=== PATIENT | female | born 1950 | race Caucasian/White ===

== ENCOUNTER 2020-11-14 09:58 | Outpatient (CLI) | payer MEDICARE, SELFPAY ==
--- NOTE | ~2020-11-14 | MR_ITS ---
EXAMINATION: MR shoulder RT wo con DATE: 11/14/2020 10:59 INDICATION: Right shoulder pain TECHNIQUE: Magnetic resonance imaging (MRI) of the right shoulder was performed without intravenous c ontrast. Sequences included axial PD-weighted FS FSE, coronal oblique PD-weighted FS FSE, coronal obl ique T2-weighted FS FSE, sagittal PD-weighted FS FSE, and sagittal T1-weighted SE. COMPARISON: None. FINDINGS: Coracoacromial arch: The acromion undersurface is flat in morphology (type I). The coracoacromial ligament is normal. Mode rate acromioclavicular osteoarthritis small inferiorly directed osteophytes which exerts mild mass ef fect upon the underlying proximal supraspinatus tendon. Rotator cuff: Moderate supraspinatus and infraspinatus tendinopathy without discrete tear. Minimal subscapularis te ndinopathy without discrete tear. The teres minor tendon is normal. No asymmetric muscular atrophy a t the right rotator cuff or shoulder girdle. Biceps tendon, glenoid labrum and glenohumeral cartilage: The long head biceps tendon is not identified and likely torn and retracted below the level of the in tertubercular groove. Small tear with tiny peripheral paralabral cyst at the posterior glenoid labrum . Partial-thickness cartilage loss at the central, anterior and anterosuperior glenoid as well as anish ng the humeral head with superior and superomedial predominance, both without degenerative subchondra l changes. Small marginal osteophytes are present along the inferomedial aspect of the humeral head. Fluid: Physiologic amount of fluid in the glenohumeral joint. No loose osteochondral bodies. Multi increased fluid signal in the subacromial/subdeltoid bursa consistent with mild bursitis. Bones: Normal marrow signal with no edema, fracture or pathologic marrow replacing process. Mild cystic yao ge at the lesser tuberosity. IMPRESSION: 1. Mild right glenohumeral osteoarthritis with tear at the posterior glenoid labrum. 2. Moderate supraspinatus and infraspinatus and mild subscapularis tendinopathy without discrete tear . 3. Complete tear and distal retraction of the long head biceps tendon. 4. Moderate acromioclavicular osteoarthritis with mild underlying subacromial/subdeltoid bursitis. Reviewed, dictated and finalized at location A. IMPRESSION: 1. Mild right glenohumeral osteoarthritis with tear at the posterior glenoid [place]. 2. Moderate supraspinatus and infraspinatus and mild subscapularis tendinopathy without discrete tear. 3. Complete tear and distal retraction of the long head biceps tendon. 4. Moderate acromioclavicular osteoarthritis with mild underlying subacromial/s ubdeltoid bursitis.
== END 2020-11-14 09:59 | disposition home or self-care (01) ==
PROVIDERS: PCP Internal Medicine; Visit Provider Orthopaedic Surgery
DX: M19.011 Primary osteoarthritis, right shoulder (principal); S46.211A Strain of muscle, fascia and tendon of other parts of biceps, right arm, initial encounter; M75.51 Bursitis of right shoulder
CPT/HCPCS: 73221

== ENCOUNTER 2022-05-28 12:06 | Emergency (ER) | payer MEDICARE, SELFPAY ==
--- NOTE | 2022-05-28 12:09 | ED.URI ---
HPI - URI/Sore Throat General Chief Complaint: Upper Respiratory Infection Stated Complaint: Cough Time Seen by Provider: 05/28/22 12:08 Source: patient Mode of arrival: ambulatory Limitations: no limitations History of Present Illness HPI Narrative: Ms. Dyson is a 71-year-old female patient presenting to clinic today with complaints a cough x3 weeks. She reports that she began rattling yesterday or today. States that when she rattled before she had pneumonia and is concerned that she may have pneumonia. She has a productive cough but is not looking at what color it is. She denies any fever or chills currently. SpO2 is 97% on room air and she is able speak in full sentences without gasping for air. Does have history of pneumonia in the past. Denies having any history of congestive heart failure MD elicited complaint: cough and other ( rattling in chest) Related Data Home Medications Medication Instructions Recorded Confirmed escitalopram oxalate 20 mg tablet 20 mg DIRECTED 04/21/19 05/28/22 lorazepam 1 mg tablet 1 mg DIRECTED 04/21/19 05/28/22 fluconazole 150 mg tablet 150 mg DIRECTED 05/28/22 05/28/22 pantoprazole 40 mg tablet,delayed 40 mg PO DIRECTED 05/28/22 05/28/22 release Allergies Allergy/AdvReac Type Severity Reaction Status Date / Time diphenhydramine Allergy Unknown TONGUE Verified 10/28/21 12:32 EDEMA Review of Systems Review of Systems: Pertinent positives per HPI. Patient denies any fever, chills, rash, headache, visual changes, dizziness, shortness of breath, chest pain, palpitations, nausea, vomiting, diarrhea, constipation, abdominal pain, or any urinary issues. [facility] Past Medical History Medical History Right shoulder pain Family History Family History Other Family history of malignant neoplasm Social History Social History Smoking status: Never smoker Alcohol intake: never Substance use: never Gender identity (if verbalized by the patient): Female Comments At the time of my signature, I reviewed and agree with the nursing past medical, surgical, social, and family history. There is no relevant family history pertinent to the patient complaint. Exam Narrative: General: Well-developed, well nourished, in no apparent distress Head: Normocephalic, atraumatic Eyes: Pupils equally round and reactive to light bilaterally, EOM intact, sclera and conjunctive clear, no discharge, lids normal Ears: TMs intact and clear, ear canals clear, no drainage, grossly hearing normal. Nose: Nares patent, clear nasal discharge, no inflammation, no sinus tenderness. Mouth: Oral pharynx without lesions or masses, good dentition, MMM. Neck: Supple, trachea midline, no enlargement of anterior or posterior cervical nodes, no thyroid masses or goiter palpable. Cardio: Regular rate and rhythm, s1 and s2 normal, no murmur appreciated. Resp: Crackles heard over the left mid lower lobes and the right mid lobe posterioly, no rhonchi, wheezing or rubs Course Course Emergency Course: Portions of this record may have been created with voice recognition software. Level of Care: Express Care Visit Vital Signs Vital signs: Vital Signs Temperature 36.8 C 05/28/22 12:18 Pulse Rate 92 05/28/22 12:18 Respiratory Rate 18 05/28/22 12:18 Blood Pressure 129/89 05/28/22 12:18 Pulse Oximetry 97 05/28/22 12:18 Oxygen Delivery Room Air 05/28/22 12:18 Temperature 36.8 C 05/28/22 12:18 Pulse Rate 92 05/28/22 12:18 Respiratory Rate 18 05/28/22 12:18 Blood Pressure 129/89 05/28/22 12:18 Pulse Oximetry 97 05/28/22 12:18 Oxygen Delivery Room Air 05/28/22 12:18 Vital signs reviewed MDM - URI/Sore Throat MDM Narrative Medical decision making narrative: At
[2022-05-28 12:18] VITALS: BP 129/89; PULSE 92; RESP 18; TEMP 36.8; O2SAT 97
== END 2022-05-28 12:38 | disposition home or self-care (01) ==
PROVIDERS: Emergency Provider Nurse Practitioner Family; PCP Internal Medicine
DX: J22 Unspecified acute lower respiratory infection (principal)
CPT/HCPCS: 99213; G0463

== ENCOUNTER 2022-06-30 07:35 | Emergency (ER) | payer MEDICARE, SELFPAY ==
--- NOTE | ~2022-06-30 | CT_ITS ---
CT Abdomen and Pelvis with contrast. History: Abdominal pain. Spiral CT of the abdomen and pelvis was performed after the administration of intravenous contrast. 1 00 cc of Omnipaque 350 was administered intravenously without complication. Dose reduction technique was used on this scan by utilizing automated exposure control and iterative reconstruction technique. The dose-length product (DLP) was 1075.83 mGy-cm. Findings: Scans through the lung bases are unremarkable. Mild intrahepatic biliary dilatation may be related to prior cholecystectomy. Common bile duct is als o dilated to 12-13 mm. The spleen, pancreas, adrenals and kidneys are within normal limits. No evide nce of aortic aneurysm. No lymphadenopathy is seen. Duodenal diverticulum noted. There is extensive wall thickening of the distal descending and sigmoid colon with pericolonic inflammatory change. No definite abscess or free air evident. Large amount of stool present in the colon proximal to the area of wall thickening of the distal descending colon. Sm all bowel anastomosis noted. Images through the pelvis were performed. Urinary bladder appears to be partially prolapsed. No pelvi c mass evident. Patient appears to be post hysterectomy. No ascites is seen. Impression: Marked wall thickening and inflammatory change involving the distal descending colon and sigmoid colo n. Findings are most compatible with diverticulitis. Underlying neoplasm felt to be less likely, but not completely excluded. Consider follow-up colonoscopy after acute therapy. No abscess or free air evident. Intrahepatic and extrahepatic biliary dilatation may be related to prior cholecystectomy. Correlate c linically and with LFTs. Probable partial prolapse of the urinary bladder. Reviewed, dictated and finalized at location . TACKER Impression: Marked wall thickening and inflammatory change involving the distal descending colon and sigmoid colon. Findings are most compatible with diverticulitis. Unde rlying neoplasm felt to be less likely, but not completely excluded. Consider f ollow-up colonoscopy after acute therapy. No abscess or free air evident. Intrahepatic and extrahepatic biliary dilatation may be related to prior cholec ystectomy. Correlate clinically and with LFTs. Probable partial prolapse of the urinary bladder.
[2022-06-30 07:35] VITALS: BP 190/106; PULSE 91; RESP 16; TEMP 37; O2SAT 100
[2022-06-30 07:49] VITALS: BP 121/110; PULSE 90; RESP 16; TEMP 37; O2SAT 100
[2022-06-30] MEDS: MORPHINE SULFATE (*CRX) 4 MG/ML INJ IV PUSH (08:00)
[2022-06-30] MEDS: ONDANSETRON INJ 4 MG/2 ML VIAL IV PUSH (08:00)
[2022-06-30] MEDS: SODIUM CHLORIDE 0.9% IV 1,000 ML 150 ML IV CONT (08:01)
[2022-06-30 08:05] LABS: Basophils Absolute Auto 0.1 K/mm3 (0.0-0.1); Basophils Percent Auto 0.5 % (0.2-1.2); Eosinophils Absolute Auto 0.3 K/mm3 (0-0.3); Eosinophils Percent Auto 2.7 % (0-4.4); Hematocrit 38.2 % (37.0-47.0); Hemoglobin 11.7 g/dL (12.0-15.0); Immature Granulocyte Absolute 0.09 K/mm3 (0.00-0.031); Immature Granulocyte Percent A 0.8 % (0-0.5); Lymphocytes Absolute Auto 1.39 K/mm3 (0.9-3.2); Lymphocytes Percent Auto 12.7 % (18.3-44.2); Mean Corpuscular HGB Conc 30.6 g/dl (32-36); Mean Corpuscular Hemoglobin 27.8 pg (26-34); Mean Corpuscular Volume 90.7 fl (80-100); Mean Platelet Volume 8.7 fl (7.4-10.4); Monocytes Absolute Auto 0.7 K/mm3 (0.1-0.6); Monocytes Percent Auto 6.7 % (2.6-8.5); Neutrophils Absolute Auto 8.4 K/mm3 (1.3-6.7); Neutrophils Percent Auto 76.6 % (45.5-73.1); Platelet Count Result 379 k/mm3 (150-375); Red Blood Count 4.21 M/mm3 (4.2-5.4); Red Cell Distribution Width 13.9 % (11.5-14.5)
[2022-06-30 08:07] LABS: Appearance Urine Slightly Cloudy (Clear); Bilirubin Urine 1+ (Negative); Blood Urine 2+ (Negative); Color Urine Yellow (Yellow); Glucose Urine UA Negative (Negative); Ketones Urine Trace mg/dL (Negative); Leukocyte Esterase Ur Negative LEU/UL (Negative); Nitrate Urine Negative (Negative); Protein Urine 1+ mg/dL (Negative); Specific Grav Ur >= 1.030 (1.001-1.035); Urobilinogen Urine 0.2 mg/dL (<2.0); pH Urine 5.5 (5.0-9.0)
[2022-06-30 08:16] LABS: Alanine Aminotransferase 17 U/L (6-35); Albumin Level 3.9 g/dL (3.5-5.1); Alkaline Phosphatase 142 U/L (38-126); Anion Gap 9 mmol/L (8-16); Aspartate Amino Transferase 22 U/L (14-36); Bilirubin,Total 0.5 mg/dL (0.2-1.3); Blood Urea Nitrogen 7 mg/dL (7-17); Calcium 8.7 mg/dL (8.4-10.2); Carbon Dioxide 29 mmol/L (22-30); Chloride 101 mmol/L (98-107); Estimated CRCL calculation 69 ml/min; Estimated Glomerular Filt Rate > 60; Glucose 115 mg/dL (65-110); Potassium 3.4 mmol/L (3.4-5.0); Sodium 139 mmol/L (137-145)
[2022-06-30 08:21] LABS: Add Urine Microscopic? YES; Mucus Urine Rare /lpf; Squamous Epithelial Cell Urine Many /hpf (Few); WBC Urine 0-3 /hpf
--- NOTE | 2022-06-30 08:34 | ED.ABDPAIN ---
HPI - Abdominal Pain General Chief Complaint: Abdominal Pain Stated Complaint: LLQ pain Time Seen by Provider: 06/30/22 07:45 Source: patient Mode of arrival: EMS Limitations: no limitations History of Present Illness HPI narrative: 71-year-old with a history of anxiety disorder, diverticulosis, s/p multiple abdominal hernia repair here with complaints of left lower abdominal pain. Patient states that for past few days she has been having intermittent left lower abdominal pain however since this morning the pain has been quite intense. She denies any nausea, vomiting or constipation. She denies any fever or chills. No history of blood in the urine or in stool. MD elicited complaint: abdominal pain Pertinent past history: none Onset (ago): day(s) (1) Pain Consistency: constant Location: LLQ Severity: moderate Quality: cramping and aching Radiation: none Migration to: no migration Exacerbating factors: nothing Relieving factors: nothing Associated symptoms: diarrhea Related Data Home Medications Medication Instructions Recorded Confirmed escitalopram oxalate 20 mg tablet 20 mg DIRECTED 04/21/19 06/30/22 lorazepam 1 mg tablet 1 mg DIRECTED 04/21/19 06/30/22 fluconazole 150 mg tablet 150 mg DIRECTED 05/28/22 06/30/22 pantoprazole 40 mg tablet,delayed 40 mg PO DIRECTED 05/28/22 06/30/22 release cimetidine 200 mg tablet 200 mg PO ONCE 06/30/22 06/30/22 Allergies Allergy/AdvReac Type Severity Reaction Status Date / Time diphenhydramine Allergy Unknown TONGUE Verified 06/30/22 08:06 EDEMA Review of Systems Review of Systems: All systems reviewed & are unremarkable except as noted in HPI and below Constitutional: Constitutional: Reports no additional constitutional complaints Eyes: Eyes: Reports no additional eye complaints ENT: Reports system reviewed and no additional complaints, except as documented Cardiovascular: Cardiovascular: Reports no additional cardiovascular complaints Respiratory: Respiratory: Reports no additional respiratory complaints Gastrointestinal: Gastrointestinal: Reports as per HPI Musculoskeletal: Musculoskeletal: Reports no additional musculoskeletal complaints Neurologic: Reports system reviewed and no additional complaints, except as documented Psychiatric: Psychiatric: Reports no additional psychiatric complaints [facility] Past Medical History Medical History Right shoulder pain Family History Family History Other Family history of malignant neoplasm Social History Social History Smoking status: Never smoker Alcohol intake: never Substance use: never Gender identity (if verbalized by the patient): Female Course Course Emergency Course: 31-year-old presents to the ER with your months with the left lower abdominal pain tender on palpation did give her IV morphine and Zofran for nausea control CT shows mild diverticulitis with no obvious abscess or perforation. Her WBC count is 11. Informed patient about her diagnosis. She still has mild nausea but pain has much subsided. Vital Signs Vital signs: Vital Signs Temperature 37.0 C 06/30/22 07:35 Pulse Rate 91 06/30/22 07:35 Respiratory Rate 16 06/30/22 07:35 Blood Pressure 190/106 H 06/30/22 07:35 Pulse Oximetry 100 06/30/22 07:35 Oxygen Delivery Room Air 06/30/22 07:35 Temperature 37.0 C 06/30/22 07:49 Pulse Rate 78 06/30/22 09:16 Respiratory Rate 15 06/30/22 09:16 Blood Pressure 121/110 H 06/30/22 07:49 Pulse Oximetry 95 06/30/22 09:16 Oxygen Delivery Room Air 06/30/22 07:35 MDM - Abdominal Pain MDM Narrative Medical decision making narrative: 71-year-old with a history of left lower abdominal pain with nausea no fever or chills exam shows mild tenderness in the
[2022-06-30 09:16] VITALS: PULSE 78; RESP 15; O2SAT 95
[2022-06-30 10:00] VITALS: BP 162/102; PULSE 76; RESP 16; TEMP 36.8; O2SAT 100
== END 2022-06-30 10:03 | disposition home or self-care (01) ==
PROVIDERS: Emergency Provider Family Medicine; PCP Internal Medicine
DX: K57.32 Diverticulitis of large intestine without perforation or abscess without bleeding (principal)
CPT/HCPCS: 36415; 74177; 80053; 81001; 83605; 85025; 96361; 96374; 96375; 99284; J2270; J2405; J7030; Q9967

== ENCOUNTER 2023-06-20 10:00 | Emergency (ER) | payer MEDICARE, SELFPAY ==
--- NOTE | ~2023-06-20 | XR_ITS ---
EXAMINATION: XR knee RT 3V DATE: 06/20/2023 12:02 INDICATION: Right knee injury and pain. TECHNIQUE: 3 views of right knee were obtained. COMPARISON: None. FINDINGS: There is a total right knee arthroplasty without patellar resurfacing in near-anatomic alig nment. No fracture. No periprosthetic lucency to suggest loosening or infection. No knee joint effusi on. There is prepatellar and superficial infrapatellar soft tissue swelling. IMPRESSION: 1. Total right knee arthroplasty in near-anatomic alignment. Reviewed, dictated and finalized at location A. OF TECHNOLOGY
--- NOTE | ~2023-06-20 | CT_ITS ---
EXAMINATION: CT facial & cervical spine wo DATE: 06/20/2023 11:43 INDICATION: Head injury. TECHNIQUE: Computed tomography (CT) of the maxillofacial region and cervical spine was performed with out intravenous contrast. Automated exposure control and iterative reconstruction technique were empl oyed. The dose-length product was 387.52 mGy-cm. COMPARISON: None FINDINGS: MAXILLOFACIAL CT: There are likely changes of ocular lens replacement surgeries. There is rightward deviation of the na yudith septum. There is a fracture of anterior maxilla involving the socket of tooth 8. There is a 4 mm radiopaque foreign body in the lower lobe. There is a 2 mm radiopaque foreign body in the upper lobe. There is soft tissue gas in the upper lip and infranasal region. The paranasal sinuses are clear. CERVICAL SPINE CT: There is 2 mm anterolisthesis of C4 on C5 and C7 on T1. Vertebral body heights are normal. There is s everely decreased disc height from C2-C3 through C6-C7. The following disc levels are specifically di scussed: C2-C3: There is severe bilateral uncovertebral joint osteoarthritis. There is severe bilateral facet joint osteoarthritis. There is mild bilateral neural foraminal stenosis. There is mild central canal stenosis. C3-C4: There is severe bilateral uncovertebral joint osteoarthritis. There is severe bilateral facet joint osteoarthritis. There is mild bilateral neural foraminal stenosis. There is mild central canal stenosis. C4-C5: There is severe bilateral uncovertebral joint osteoarthritis. There is severe bilateral facet joint osteoarthritis. There is mild bilateral neural foraminal stenosis. There is mild central canal stenosis. C5-C6: There is severe bilateral uncovertebral joint osteoarthritis. There is severe bilateral facet joint osteoarthritis. There is moderate right and mild left neural foraminal stenosis. There is mild central canal stenosis. C6-C7: There is severe bilateral uncovertebral joint osteoarthritis. There is severe bilateral facet joint osteoarthritis. There is mild bilateral neural foraminal stenosis. There is mild central canal stenosis. C7-T1: There is no uncovertebral joint osteoarthritis. There is severe bilateral facet joint osteoart hritis. There is mild bilateral neural foraminal stenosis. There is no central canal stenosis. IMPRESSION: 1. Fractures of anterior maxilla involving the socket of tooth #8. 2. Radiopaque foreign bodies in the lips. 3. Severe cervical spondylosis. Reviewed, dictated and finalized at location A. LINE FINISHER
--- NOTE | ~2023-06-20 | XR_ITS ---
EXAMINATION: XR hip LT min 2V DATE: 06/20/2023 12:02 INDICATION: Left hip injury. TECHNIQUE: 2 views of left hip were obtained. COMPARISON: None. FINDINGS: Bone alignment is normal. No fracture. There is severe lumbar spondylosis. There is mild le ft hip osteoarthritis. Surgical clips overlie the pelvis. IMPRESSION: 1. Mild left hip osteoarthritis. Reviewed, dictated and finalized at location A. DINGS AND GROUNDS DIRECTOR
--- NOTE | ~2023-06-20 | CT_ITS ---
Non-contrast Head CT History: Status post fall Technique: Axial non-contrast imaging of the brain was performed. Dose reduction technique was used on this scan by utilizing automated exposure control and iterative reconstruction technique. The dose -length product (DLP) was 832.33 mGy-cm. Findings: There is no evidence of intracranial hemorrhage, mass lesion, or acute infarct. Brain par enchyma appears normal. The ventricles and subarachnoid spaces are normal in size. The calvarium ap pears normal. The visualized paranasal sinuses and mastoid air cells are clear. Impression: No significant abnormality seen. Reviewed, dictated and finalized at location . TLE FIXER Impression: No significant abnormality seen.
--- NOTE | ~2023-06-20 | XR_ITS ---
EXAMINATION: XR ankle LT 2V DATE: 06/20/2023 12:02 INDICATION: Left ankle injury and pain and swelling. TECHNIQUE: 2 views of left ankle were obtained. COMPARISON: None. FINDINGS: There is heterotopic ossification distal to fibula. There is heterotopic ossification dorsa l to navicular. There is mild osteoarthritis of talonavicular joint. There is an enthesophyte at post erior aspect of calcaneal tuberosity. Ankle soft tissue swelling is noted. IMPRESSION: 1. 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 Reviewed, dictated and finalized at location A. RETE ROD BUSTER IMPRESSION: 1. 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
[2023-06-20 11:22] VITALS: BP 146/88; PULSE 97; RESP 17; TEMP 36.5; O2SAT 97
--- NOTE | 2023-06-20 11:27 | ED.GENADULT ---
HPI - General Adult General Chief complaint: Fall <Salina French TRAINING LEAD - Last Filed: 06/20/23 11:29> Stated complaint: fell down stairs <Salina French APRN - Last Filed: 06/20/23 11:29> Time Seen by Provider: 06/20/23 13:21 <Salina French TRAINING LEAD - Last Filed: 06/20/23 11:29> Source: patient <Vanita Villarreal MD - Last Filed: 06/21/23 10:58> Mode of arrival: EMS <Vanita Villarreal MD - Last Filed: 06/21/23 10:58> Limitations: no limitations <Vanita Villarreal MD - Last Filed: 06/21/23 10:58> History of Present Illness HPI narrative: Ana Laura Salazar is a 72 y/o female who presents today with complaints of mechanical fall down two stairs landing on her face. Denies known LOC/ complains of pain to front teeth/ chipped left front tooth noted with lip abrasions/ no active bleeding/ complains of pain to right knee / left ankle denies having dizziness/ light headed before fall patient is alert and oriented X 4 <Salina French TRAINING LEAD - Last Filed: 06/20/23 11:29> Ana Laura Salazar is a 72 y/o female who presents today with complaints of mechanical ground level fall down two stairs [place] Denies known LOC/ complains of pain to front teeth/ chipped left front tooth noted with lip abrasions/ no active bleeding/ complains of pain to right knee / left ankle denies having dizziness/ light headed before fall . Not on anticoagulation. patient is alert and oriented X 4 . No paresthesias in foot or face, pain mainly at the area between upper lip and nose. Patient denies spitting out any gravel but does note that she had small pieces of her tooth (presumably tooth #9) that she spit out. Tetnus up to date. <Vanita Villarreal MD - Last Filed: 06/21/23 10:58> Related Data Home medications: Home Medications Medication Instructions Recorded Confirmed escitalopram oxalate 20 mg tablet 20 mg DIRECTED 04/21/19 06/30/22 lorazepam 1 mg tablet 1 mg DIRECTED 04/21/19 06/30/22 fluconazole 150 mg tablet 150 mg DIRECTED 05/28/22 06/30/22 pantoprazole 40 mg tablet,delayed 40 mg PO DIRECTED 05/28/22 06/30/22 release cimetidine 200 mg tablet 200 mg PO ONCE 06/30/22 06/30/22 <Salina TrejoElizabeth October,N - Last Filed: 06/20/23 11:29> Allergies/adverse reactions: Allergies Allergy/AdvReac Type Severity Reaction Status Date / Time diphenhydramine Allergy Unknown TONGUE Verified 06/20/23 12:16 EDEMA <Salina Kuhn October,N - Last Filed: 06/20/23 11:29> PMFSH Past Medical History Medical History: Medical History (Updated 06/21/23 @ 00:07 by Devyn Rolle) Right shoulder pain <Salina Kuhn October,N - Last Filed: 06/20/23 11:29> Surgical History Surgical History: Surgical History (Updated 06/21/23 @ 10:53 by Vanita Villarreal MD) History of bilateral knee replacement <Salina Kuhn October,N - Last Filed: 06/20/23 11:29> Family History Family History: Family History Other Family history of malignant neoplasm <Salina Kuhn October, - Last Filed: 06/20/23 11:29> Social History Social History: Social History Smoking status: Never smoker Alcohol intake: never Substance use: never Living arrangements: with family Occupation/Education: occupation Gender identity (if verbalized by the patient): Female <Salina TrejoElizabeth October,N - Last Filed: 06/20/23 11:29> Exam Narrative: GENERAL: Well-appearing, well-nourished, and in no acute distress. HEAD: No auricular hematoma. Midface TTP w/o instability or ecchymosis overlying cheekbones. EYES: Non injected, non icteric. No periorbital ecchymosis. ENT: Nares clear, no rhinorrhea or epistaxis. No septal hematoma. Abrasions above the lip, on the right greater than the left without jumana laceration amenable to repair. 0.5cm laceration on inner l
[2023-06-20] MEDS: HYDROcodone/acetaminophen (*CRX) 5-325 MG TABLET 1 TAB PO ×2 (12:17→18:29)
--- NOTE | 2023-06-20 12:28 | PC.NURSE ---
Pt presents with abrasion to upper & lower lips, bilateral front teeth chipped
--- NOTE | 2023-06-20 15:57 | PC.NURSE ---
PT NOTED TO HAVE A SMALL LAC BELOW LEFT LOWER LIP HAS CRACKED TOOTH LEFT ANKLE PAINFUL, SLIGHTLY SWOLLEN
--- NOTE | 2023-06-20 18:27 | PC.NURSE ---
Called CAT scan working on CD at this time per Dr Nichols request.
[2023-06-20 18:42] VITALS: BP 136/87; PULSE 92; RESP 18; O2SAT 95
--- NOTE | 2023-06-29 12:18 | PC.NURSE ---
LATE ENTRY This note is being entered to document information to the patient's record. The following information was omitted on [06/27/23], by [Noemi Albert RN]. Posterior splint applied to Left lower leg.
--- NOTE | 2023-06-30 19:28 | PC.NURSE ---
06/20/22 at 1845 a Short leg Fiber glass splint applied to Left Leg via 2 ED techs.
== END 2023-06-20 18:43 | disposition home or self-care (01) ==
PROVIDERS: Emergency Provider Student in an Organized Health Care Education/Training Program
DX: S02.40CA Maxillary fracture, right side, initial encounter for closed fracture (principal); S82.892A Other fracture of left lower leg, initial encounter for closed fracture; Z96.653 Presence of artificial knee joint, bilateral; M47.812 Spondylosis without myelopathy or radiculopathy, cervical region; M16.12 Unilateral primary osteoarthritis, left hip; W10.9XXA Fall (on) (from) unspecified stairs and steps, initial encounter
CPT/HCPCS: 29515; 70450; 70486; 72125; 73502; 73562; 73600; 99284; A9270

== ENCOUNTER 2024-08-09 11:27 | Emergency (ER) | payer MEDICARE, SELFPAY ==
[2024-08-09 11:41] VITALS: BP 148/78; PULSE 89; RESP 16; TEMP 36.6; O2SAT 98
--- NOTE | 2024-08-09 12:22 | ED.URI ---
HPI - URI/Sore Throat General Chief Complaint: Upper Respiratory Infection Stated Complaint: Cough/Sinus Time Seen by Provider: 08/09/24 12:22 Source: patient, RN notes reviewed and old records reviewed Mode of arrival: ambulatory Limitations: no limitations History of Present Illness HPI Narrative: 73-year-old female presents to the [facility] with complaints of cough, sinus congestion. Patient reports that she had the flu approximately 3 weeks ago. Started with a productive cough 2 weeks ago, decrease appetite. Reports that she has been taken Tylenol, Pepto and NyQuil. Patient states that she is very concern for pneumonia. Treatments prior to arrival: acetaminophen and cold medicine Related Data Home Medications ?Medication ?Instructions ?Recorded ?Confirmed ?Last Taken ?Type escitalopram oxalate 20 mg tablet 20 mg DIRECTED 04/21/19 06/30/22 06/29/22 History lorazepam 1 mg tablet 1 mg DIRECTED 04/21/19 06/30/22 06/29/22 History fluconazole 150 mg tablet 150 mg DIRECTED 05/28/22 06/30/22 Unknown History pantoprazole 40 mg tablet,delayed 40 mg PO DIRECTED 05/28/22 06/30/22 Unknown History release fluticasone propionate 50 intranasal 08/09/24 Unknown History mcg/actuation nasal spray,suspension Allergies Allergy/AdvReac Type Severity Reaction Status Date / Time diphenhydramine Allergy Unknown TONGUE Verified 08/09/24 12:17 EDEMA Review of Systems Review of Systems: All systems reviewed & are unremarkable except as noted in HPI and below Constitutional: Constitutional: Reports no additional constitutional complaints ENT: Reports as per HPI Cardiovascular: Cardiovascular: Reports no additional cardiovascular complaints, Denies chest pain and Denies dyspnea Respiratory: Respiratory: Reports as per HPI, Denies chest congestion, Reports cough and Denies dyspnea Musculoskeletal: Musculoskeletal: Reports no additional musculoskeletal complaints Integumentary/Breasts: Skin/Breast: Reports system reviewed and no additional complaints, except as docu PMFSH Past Medical History Medical History Right shoulder pain Surgical History Surgical History History of bilateral knee replacement Family History Family History Other Family history of malignant neoplasm Social History Social History Smoking status: Never smoker Alcohol intake: never Substance use: never Living arrangements: with family Occupation/Education: occupation Gender identity (if verbalized by the patient): Female Comments At the time of my signature, I reviewed and agree with the nursing past medical, surgical, social, and family history. There is no relevant family history pertinent to the patient complaint. Exam Const: General: cooperative, healthy appearing, comfortable, no acute distress, well developed, alert and well nourished Nutritional Appearance: well nourished Orientation/consciousness: patient oriented x3 Limitations: no limitations HENMT: Head: normal to inspection Ears: hearing grossly normal bilaterally, external ears normal, TM's normal bilaterally, EAC's normal, mastoids normal and no periauricular adenopathy Face/Nose/Sinus: Normal external nose present, Normal nares present and No nasal polyps present Mouth: Yes Normal oral and palatal mucosa present, Yes lip normal, Yes tongue normal and Yes moist mucous membranes Throat: posterior oropharynx normal, uvula midline, postnasal drainage and no uvular edema Eyes: General: appearance normal, both eyes and all related structures Alignment and Position: alignment normal Neck: Neck: normal visual inspection, full ROM, no lymphadenopathy and no meningeal signs Chest: Chest palpation & inspection: normal inspection of the chest Resp: Effort & Inspection: normal respiratory effort and able to speak in complete sentences Auscultation: clear to auscultation bilaterally, no crackles, no rales, no rhonchi and no wheezes Cardio: Rate: regular rate Skin: General skin exam: normal color and no rashes or lesions noted Neuro: General: patient oriented x3, gait normal, moves all extremities and no meningeal signs Cognition (Neuro): normal cognition Speech: normal speech Gait exam (Neuro): Normal gait present Extrem: General: normal to inspection, full ROM, capillary refill normal and normal gait Psych: Appearance: grossly normal and well kempt Mental Status: mental status grossly normal Speech and movement: Normal speech and movement present and Clear speech present Affect: normal affect Attitude: cooperative Course Course Level of Care: Express Care Visit Vital Signs Vital signs: Vital Signs Temperature 97.9 F 08/09/24 11:41 Pulse Rate 89 08/09/24 11:41 Respiratory Rate 16 08/09/24 11:41 Blood Pressure 148/78 H 08/09/24 11:41 Pulse Oximetry 98 08/09/24 11:41 Oxygen Delivery Room Air 08/09/24 11:41 Temperature 97.9 F 08/09/24 11:41 Pulse Rate 89 08/09/24 11:41 Respiratory Rate 16 08/09/24 11:41 Blood Pressure 148/78 H 08/09/24 11:41 Pulse Oximetry 98 08/09/24 11:41 Oxygen Delivery Room Air 08/09/24 11:41 Reviewed MDM - URI/Sore Throat MDM Narrative Medical decision making narrative: Patient sitting comfortably in exam room. Nontoxic, vitals stable. Patient presents with 2-3 week history of URI ice, flu-like symptoms. Chest x-ray is negative. Patient appropriate for outpatient treatment with close follow-up. Discussed that post viral cough can last for several weeks if not several months. Patient appropriate for outpatient treatment and follow-up Discharge instructions reviewed with patient, as well as provided in writing per nursing staff. The instructions also include specific and strict return/GO TO THE ER as well as f/u information. All questions have been answered, and the patient deny any further questions with discharge and discharge plan. Some parts of this dictation were generated by voice recognition software and may contain typographical and/or grammatical inaccuracies. Differential Diagnosis Differential diagnosis: Likely upper respiratory infection, otitis media, sinusitis, viral infection, bronchitis, influenza and pharyngitis Imaging Data Radiologist's impression: EXAMINATION: XR chest 2V 08/09/2024 12:44 INDICATION: Cough for 2 weeks PROCEDURE: 2 view chest COMPARISON: 04/05/2018 FINDINGS: The lungs are clear. The cardiomediastinal silhouette is within normal limits. There are no pleural effusions. There is no pneumothorax suspected. IMPRESSION: 1: NO ACUTE CARDIOPULMONARY DISEASE. Critical Care Time Critical Care Time Critical Care Time: No Discharge Plan Discharge Clinical Impression: Bronchitis Cough Qualifiers: Cough type: acute Qualified Code(s): R05.1 - Acute cough Patient Disposition: Home, Self-Care Condition: Stable Instructions: Antibiotic Form, Acute Bronchitis (ED) Additional Instructions: your chest x-ray did not show signs of pneumonia. After having the flu, You can have a lingering cough for several weeks if not a couple of months It is very important to treat your symptoms. Drink plenty of water, Gatorade, Pedialyte, ice pops or Jell-O. -Alternate Tylenol and Motrin per package directions for fever or pain. You can alternate every 4 hours -Antihistamine medication such as Zyrtec/Claritin/Pamla during the day can help improve symptoms. -doing daily nasal irrigations can help relieve pressure your sinuses. Things like a Neti pot -Use Flonase twice a day for 5 days then daily to help reduce the inflammation and dry up your sinuses. -You can also use Mucinex. Be sure to drink plenty of water with this medication at least 8 ounces with every dose and it is important to drink 8 to 10 glasses of water per day. Water is a natural decongestant -Eat and drink things that are easy to swallow, like tea or soup, or popsicles. -Oral rinses such as: Salt water gargles and/or may use topical anesthetic (eg. Chloraseptic spray) or lozenges to relieve dryness or throat pain). -Frequent hand washing or hand upholstery estimator is one of the best ways to prevent spread of infection. -Using a vaporizer or humidifier at night will also help thin secretions and help with coughing up phlegm. -Follow up with primary care provider in 7-10 days if condition is not improving - For new or worsening symptoms go directly to the nearest ER Patient Language: Togolese Prescriptions: New doxycycline monohydrate 100 mg tablet 100 mg PO BID Qty: 14 0RF albuterol sulfate [Ventolin HFA] 90 mcg/actuation HFA aerosol inhaler 2 inh inhalation QID PRN (Reason: shortness of breath or wheezing) Qty: 6.7 0RF No Action lorazepam 1 mg tablet 1 mg DIRECTED escitalopram oxalate 20 mg tablet 20 mg DIRECTED fluticasone propionate 50 mcg/actuation spray,suspension INTRANASAL fluconazole 150 mg tablet 150 mg DIRECTED pantoprazole 40 mg tablet,delayed release (DR/EC) 40 mg PO DIRECTED albuterol sulfate 90 mcg/actuation HFA aerosol inhaler 2 puff inhalation Q4-6H PRN (Reason: shortness of breath or wheezing) 30 Days Qty: 8.5 0RF ondansetron 4 mg tablet,disintegrating 4 mg PO Q6-8H PRN (Reason: nausea and vomiting) Qty: 14 0RF acetaminophen 500 mg capsule 500 mg PO Q6H PRN (Reason: pain) Qty: 20 0RF Follow-up/Referrals: PHYSICIAN,BENCH WORKER [Primary Care Provider] - Stand Alone Forms: Work/School Release IP Time of Disposition: 12:52
== END 2024-08-09 13:00 | disposition home or self-care (01) ==
PROVIDERS: Emergency Provider Nurse Practitioner
DX: J40 Bronchitis, not specified as acute or chronic (principal); R05.1 Acute cough
CPT/HCPCS: 71046; 99213; G0463

== ENCOUNTER 2024-09-10 14:17 | Outpatient (CLI) | payer MEDICARE, SELFPAY ==
--- NOTE | ~2024-09-10 | XR_ITS ---
EXAMINATION: XR shoulder RT min 2V DATE: 09/10/2024 15:00 INDICATION: Acute onset right shoulder pain post fall one month prior TECHNIQUE: AP internally and externally rotated, AP oblique externally rotated and transscapular Y vi ews of the right shoulder were obtained. COMPARISON: None FINDINGS: Normal alignment. No fracture.Mild glenohumeral osteoarthritis. Moderate acromioclavicular osteoarth ritis. Tiny punctate dystrophic soft tissue calcifications along the greater tuberosity which can be seen in the setting of calcific tendinitis. Visualized portion of the lungs are clear. IMPRESSION: 1. No acute osseous abnormality. 2. Mild right glenohumeral and moderate acromioclavicular osteoarthritis. 3. Punctate dystrophic soft tissue calcifications along the right greater tuberosity which can be see n in the setting of rotator cuff calcific tendinitis. Reviewed, dictated and finalized at location B. IMPRESSION: 1. No acute osseous abnormality. 2. Mild right glenohumeral and moderate acromioclavicular osteoarthritis. 3. Punctate dystrophic soft tissue calcifications along the right greater tuber osity which can be seen in the setting of rotator cuff calcific tendinitis.
== END 2024-09-10 14:18 | disposition home or self-care (01) ==
DX: M19.011 Primary osteoarthritis, right shoulder (principal); M25.511 Pain in right shoulder; W19.XXXA Unspecified fall, initial encounter; M79.601 Pain in right arm
CPT/HCPCS: 73030

== ENCOUNTER 2024-11-27 12:23 | Outpatient (CLI) | payer MEDICARE, SELFPAY ==
--- NOTE | ~2024-11-27 | XR_ITS ---
MODIFIED ESOPHAGRAM HISTORY: Dysphagia. TECHNIQUE: Modified barium esophagram was performed on 11/27/2024. I administered fluoroscopy and perf ormed the exam with speech pathologist. Patient was seated for lateral fluoroscopic imaging for angel stion of thin liquids, pudding, solids and quantified amounts, followed by thin liquids in uncontroll ed amounts. This was recorded on tape. A single fluoroscopic spot image was also recorded. The DAP fo r this procedure was 1.765 Gycm2. The amount of fluoroscopy time used during this procedure was 2.1 m inutes. FINDINGS: Oral stage: Adequate function. Pharyngeal stage: Adequate function. There is shallow flash laryngeal penetration which cleared witho ut aspiration. Cervical/esophageal stage: Adequate function. IMPRESSION: Patient tolerated regular consistency oral feedings in the upright position. Please andres elate with speech pathologist findings and specific feeding recommendations. Reviewed, dictated and finalized at location A. IMPRESSION: Patient tolerated regular consistency oral feedings in the upright position. Please correlate with speech pathologist findings and specific feedi ng recommendations.
--- OUTSIDE RECORDS SUMMARY | 2024-11-27 12:55 | XMS_ITS | Clinical Summary ---
Author Organization [facility] [employer] Address [address] [place] [address] Care Team Providers Care Occupational Therapy Department Chair Name Role Phone Hilario Negron MD Primary Care Provider [phone] Chuck Barrow MD Unavailable [phone] Source Comments [facility],non-owned Affiliates and Associated Physician Practices is amultiple site organization consisting of ambulatory clinics and hospital sitesin [place], [place], [place] and [place]. This disclosure is being madepursuant to the Care Everywhere program and may not contain all information available regarding this patient. Last updated 18.[facility] [employer] Allergies Active Allergy Reactions Criticality Noted Date Comments Diphenhydramine Other Low 05/31/2019 GI Intolerance Other reaction(s): Other (See comments) GI Intolerance GI Intolerance Medications * Be aware that medications may not be up to date on this document. Alwaysverify current medications with the patient. pantoprazole EC (PROTONIX) 40 MG tablet Take 1 (one) tablet by mouth once daily 9 7 Active LORazepam (ATIVAN) 1 MG tablet Take 1 (one) tablet by mouth once daily 1 7 Active escitalopram (LEXAPRO) 20 MG tablet Take 1 (one) tablet by mouth once daily 0 7 Active cimetidine (TAGAMET) 800 MG tablet daily. Active amoxicillin (Amoxil) 500 MG capsule 3 Active doxycycline hyclate (Vibramycin) 100 MG capsule 2 Active nystatin-triamc inolone (Mycolog) 188680-5.1 UNIT/GM-% creamIndication s:Yeast infection Apply to affected area 2 times daily as needed 30 g 2 Active Additional Information Patient not taking.Reported on 07/20/2023 Active Problems Problem Noted Date Diagnosed Date Refused influenza vaccine 05/21/2021 Cystocele, midline 05/21/2021 Menopausal symptoms Family History Medical History Relation Name Comments Cancer - Colon Father Relation Name Status Comments Father Social History Tobacco Use Types Packs/Day Years Used Date Smoking Tobacco: Never Smokeless Tobacco: Never Tobacco Cessation:Counseling Given: Not Answered Alcohol Use Standard Drinks/Week Comments Yes 0 (1 standard drink = 0.6 oz pur e alcohol) social PHQ-2 Answer Date Recorded Patient Health Questionnaire-2 Score 0 07/20/2023 Comments No Sex and Gender Information Value Date Recorded Sex Assigned at Not on file Legal Sex 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 Gender Identity Not on file Sexual Orientation Not on file Last Filed Vital Signs Vital Sign Reading Time Taken Comments Blood Pressure 126/80 07/20/2023 1:57 PM TRANSFER STATION OPERATOR Pulse - - Temperature - - Respiratory Rate - - Oxygen Saturation - - Inhaled Oxygen Concentration - - Weight 93 kg (205 lb) 07/20/2023 1:57 PM TRANSFER STATION OPERATOR Height 159 cm (5' 2.6) 07/20/2023 1:57 PM TRANSFER STATION OPERATOR Body Mass Index 36.78 07/20/2023 1:57 PM TRANSFER STATION OPERATOR Plan of Treatment Health Maintenance Due Date Last Done Comments COLOGUARD (AGES 45-75) - COLON CA SCREENING 1949 CT COLONOGRAPHY - COLON CA SCREENING 1950 FIT - COLON CA SCREENING 1950 FLEX SIG - COLON CA SCREENING 1950 LIPID TESTING 1950 MEDICARE AWV 12 MONTHS 1949 HEPATITIS C SCREENING 10/11/1967 DTAP/TDAP/TD VACCINES (1 - Tdap) 1968 PNEUMOCOCCAL VACCINE 50+ (1 of 1 - PCV) 10/16/1999 ZOSTER VACCINE (1 of 2) 10/16/1999 COVID-19 VACCINE (3 - 2023- season) 2024 08/14/2020, 07/21/2020 DEPRESSION SCREENING 06/13/2024 07/20/2023 Respiratory Syncytial Virus (RSV) Vaccine Pt: or over 60 yrs (1 - 1-dose 75+ series) 2024 INFLUENZA VACCINE (Season Ended) 2025 MAMMOGRAM 04/24/2026 04/24/2024, 04/13, 04/26/2023, Additional history exists COLON MONITORING 04/21/2031 04/21/2021 COLONOSCOPY - COLON CA SCREENING 04/21/2031 04/21/2021 Colorectal Cancer Screening 04/21/2031 BONE DENSITY TESTING Completed 03/16/2022, 03/16/2022, 05/07/2019 HEPATITIS B VACCINE Aged Out No longe r eligible based on patient's age to complete this topic HIB VACCINE Aged Out No longer eligi ble based on patient's age to complete this topic HPV VACCINE Aged Out No longer eligi ble based on patient's age to complete this topic MENINGOCOCCAL (Group B) VACCINE SHARED DECISION-MAKING Aged Out No longer eligible based on patient's age to complete this topic MENINGOCOCCAL GROUPS A/C/Y/W VACCINE Aged Out No longer eligible based on patient's age to complete this topic Procedures Procedure Name Priority Date/Time Associated Diagnosis Comments MAMMOGRAM 04/24/2024 DEXA BONE DENSITY 2 SITES 03/16/2022 from Last 3 Months or Most Recently Relevant to Health Maintenance Results * MAMMOGRAM (04/24/2024) Anatomical Region Laterality Modality Other 04/24/2024 Narrative 04/24/2024 Ordered by an unspecified provider. us Scanned Document SCANNING ONLY Final Result * DEXA BONE DENSITY 2 SITES (03/16/2022) Anatomical Region Laterality Modality Other 03/16/2022 Narrative 03/16/2022 Ordered by an unspecified provider. us Scanned Document DEXA ORDERABLES Final Result from Last 3 Months or Most Recently Relevant to Health Maintenance Insurance [employer]IC[employer] Care Teams Occupational Therapy Department Chair Relationship Specialty Start Date End Date Hilario Negron MD PCP - General Internal Medicine 07/08/16 Chuck Barrow MD [address] [facility] [address] [place] [id number] Obstetrics and Gynecology 03/10/21
--- OUTSIDE RECORDS SUMMARY | 2024-11-27 12:55 | XMS_ITS | Referral Summary ---
Author Organization [facility] Address [address] [place] [address] Care Team Providers Care Signal Wirer Name Role Phone Shine Walker MD Primary Care Provider [phone] Nancy Arias MD Unavailable [phone] Mika Moore MD Unavailable [phone] Encounters Date Type Department Care Team Description 10/31/2024 Telephone [facility] [address] [facility] [address] [place] [address] Lorrie العراقي NP Test Results 10/30/2024 Orders Only [facility] [address] [facility] 8th [address] [place] [phone] Juan Cisneros MD Varicose veins of both lower extremities with pain (Primary Dx) 10/30/2024 Telephone [facility] [address] [facility] Floor [address] [place] [address] Jessica Gill 09/07/2024 1:00 PM CDT Office Visit [address] [address] Lorrie العراقي NP Acute pain of right shoulder (Primary Dx); Fall, initial encounter; Pain in right arm 08/28/2024 Results Follow-Up [address] [address] Shine Walker MD POCT hemoglobin A1c, POCT urinalysis dipstick, CBC with auto differential, Additional followed-up results: 3 08/28/2024 11:00 AM CDT Office Visit [facility] [address] [place] [address] Shine Baez MD Infected prosthetic mesh of abdominal wall, sequela (Primary Dx); MRSA infection; High risk medication use 08/28/2024 1:00 PM CDT Office Visit [address] [address] Shine Walker MD Medicare annual wellness visit, subsequent (Primary Dx); Mixed hyperlipidemia; Generalized anxiety disorder; Hypertension, essential; Gastroesophageal reflux disease without esophagitis; Dyspepsia; Colon cancer screening; Class 2 severe obesity due to excess calories with serious comorbidity and body mass index (BMI) of 36.0 to 36.9 in adult (HCC); Cystocele, midline; Prediabetes; Tubular adenoma; MRSA (methicillin resistant Staphylococcus aureus) from Last 3 Months Allergies Active Allergy Reactions Criticality Noted Date Comments Diphenhydramine Other (See comments) Low 05/31/2019 GI Intolerance GI Intolerance Porcine Skin, Meshed Other (See comments) Low 09/15 Causes infection Medications fluticasone propionate (FLONASE) 50 mcg/actuation nasal sprayIndications: Allergic Rhinitis Administer 2 sprays into each nostril nightly 1 each 03/08/20 24 2024 Active fexofenadine (RAFAEL) 60 mg tabletIndications :Perennial allergic rhinitis Take 1 tablet (60 mg total) by mouth as needed (allergies) 90 tablet 2 03/08/20 24 2024 Active atorvastatin (LIPITOR) 80 mg tabletIndications :hyperlipidemia Take 1 tablet (80 mg total) by mouth nightly 90 tablet 3 08/29/[address] (PROTONIX) 40 mg EC tabletIndications :Gastroesophageal reflux disease without esophagitis,Dyspe psia Take 1 tablet (40 mg total) by mouth daily 30 tablet 2 08/29/19 Active doxycycline (VIBRAMYCIN) 100 mg capsuleIndication s:MRSA (methicillin resistant Staphylococcus aureus) Take 1 tablet/capsul e (100 mg total) by mouth every 12 (twelve) hours 180 tablet/caps ule 3 08/29/19 25 2025 Active amLODIPine (NORVASC) 5 mg tabletIndications :Hypertension, essential Take 1 tablet (5 mg total) by mouth daily 90 tablet 4 08/29/19 25 2025 Active ketoconazole (NIZORAL) 2 % shampoo 08/17/19 25 Active meloxicam (MOBIC) 15 mg tabletIndications :Acute pain of right shoulder,Fall, initial encounter,Pain in right arm Take 1 tablet (15 mg total) by mouth daily 30 tablet 09/08/19 25 Active LORazepam (ATIVAN) 1 mg tabletIndications :Generalized anxiety disorder TAKE ONE TABLET BY MOUTH EVERY 8 HOURS NEEDED FOR ANXIETY 60 tablet 1 11/02/19 25 Active LORazepam (ATIVAN) 1 mg tabletIndications :Generalized anxiety disorder TAKE ONE TABLET BY MOUTH EVERY 8 HOURS NEEDED FOR ANXIETY 60 tablet 5 06/28/19 25 2024 Discontinued Active Problems Problem Noted Date Diagnosed Date Perennial allergic rhinitis 03/08/2024 Viral upper respiratory tract infection 03/08/20 24 Overview (03/08/2024): Dx w PNA at [facility] without CXR to confirm pt has taken augmentin/doxycycline/albuterol and helped still PND- add zyrtec/flonase Prediabetes 03/08/2024 Hypertension, essential 03/08/2024 Hyperglycemia, unspecified 03/08/2024 History of incisional hernia repair 12/07/2023 Recurrent incisional hernia with incarceration 0 09/23/2023 Incarcerated incisional hernia 09/16/2023 MRSA (methicillin resistant Staphylococcus aureu s) 09/16/2023 Surgical wound, non healing, initial encounter 0 12/21/2022 Wound infection 12/20/2022 Surgical wound, non healing 12/09/2022 Cellulitis of abdominal wall 07/20/2022 Class 2 severe obesity due t o excess calories with serious comorbidity and body mass index (BMI) of 36.0 to 36.9 in adult 02/01/2022 Assessment & Plan (02/01/2022 3:09 PM CDT): BMI Follow-up includes: nutrition counseling. Vaginal vault prolapse 01/13/2022 Tubular adenoma 11/05/2021 Dyspepsia 11/05/2021 Prolapse of vaginal vault after hysterectomy Overview (10/08/2021): Added automatically from request for surgery [id number] Vaginal wall prolapse 10/08/2021 Overview (10/08/2021): Added automatically from request for surgery [id number] Cystocele, midline 05/21/2021 LUQ pain 03/25/2021 Overview (03/25/2021): Added automatically from request for surgery [id number] Other chest pain 07/17/2019 History of peptic ulcer 03/14/2019 Overview (03/14/2019): Added automatically from request for surgery [id number] Nausea 03/14/2019 Overview (09/10/2021): Sees Dr Whalen Encounter for Medicare annual wellness exam 12/12 Overview (09/10/2021): Last AWV: 09/10/21 Last annual screening for alcohol misuse (G0442): 09/01 Last annual screening for depression/ PHQ9 (G0444): 09/01 Last IBT for reduction of CVD (G0446): Last colonoscopy and date for recall: 04/21/21 Last mammogram 06/21/17 Bone Density: Dr Barrow does last 2018 Assessment & Plan (04/02/2020 11:16 AM CDT): She puts mustard seed oil thyme, castor, oregano oils in the naval Assessment & Plan (12/30/2017 2:48 PM CDT): HRA and PPPS done Colon cancer screening 04/19/2017 Overview (08/28/2024): 2020; next scope due 2027 Refused influenza vaccine 03/09/2017 BPPV (benign paroxysmal posi tional vertigo), unspecified laterality 08/17/2016 Diverticulosis of large intestine without hemorr johnny 04/12/2016 Mixed hyperlipidemia 01/08/2016 Assessment & Plan (02/01/2022 2:36 PM CDT): CVD- 14.1% Reviewed risks including heart attack, stroke Will recheck in 2-3 months Assessment & Plan (04/02/2020 11:14 AM CDT): Will determine level to see if Rx needed Vitamin D deficiency 01/08/2016 Assessment & Plan (04/02/2020 11:17 AM CDT): We will check the level and see if the current supplements are sufficient Gastroesophageal reflux disease without esophagi tis 07/10/2015 Assessment & Plan (02/01/2022 2:33 PM CDT): Chronic stable Continue to follow with GI Continue her current regimen Update me with any changes Rupture of biceps tendon 04/17/2015 Mass of upper extremity 02/24/2015 Generalized anxiety disorder 08/30/2014 Assessment & Plan (02/01/2022 2:31 PM CDT): Chronic, stable Continue ativan Continue healthy changes for her mood Update me with any changes Assessment & Plan (09/10/2021 2:35 PM CDT): Takes lorazepam hs fairly regularly now. We will start some lexapro-5. 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 Diverticulitis 07/23/2022 09/20/2022 Overview (07/23/2022): Added automatically from request for surgery [id number] Peptic ulcer disease 06/20/2017 022 Abdominal pain 04/19/2017 02/01/2022 BMI 39.0-39.9,adult 04/19/2017 02/02/20 22 Immunizations Immunization Administration Dates Next Due Hep A, Adult 06/12/2199 Hep A, Unspecified 06/12/1999 Hep B Vaccine 06/12/2199 Influenza, Unspecified 03/13/2021(Deferred: Denise ent Refused) Pfizer SARS-CoV-2 Monovalent Vaccination (12+ Yrs) PURPLE 08/14/2020,07/21/2020 Pneumococcal Conjugate PCV 13 01/08/2016 Pneumococcal Conjugate Pcv20 02/25/2023 Pneumococcal Polysaccharide PPV23 04/02/2020 RSV, Bivalent, Protein Subun it Rsvpref, Diluent (Abrysvo) 04/13/2024 Tdap 10/28/2016 ZOSTER LIVE 06/12/1999 ZOSTER Recombinant 03/29/2021,05/08/2019 Social History Tobacco Use Types Packs/Day Years Used Date Smoking Tobacco: Never Smokeless Tobacco: Never Tobacco Cessation:Counseling Given: Yes Alcohol Use Standard Drinks/Week Comments No 0 (1 standard drink = 0.6 oz pur e alcohol) OASIS D0700: Social Isolation Answer Da te Recorded Frequency of experiencing loneliness or isolatio n Never 02/11/2023 OASIS A1250: Transportation Answer Date Recorded Lack of Transportation (Medical) No 02/11/2023 Lack of Transportation (Non-Medical) No 02/11/2023 Patient Unable or Declines to Respond No 02/11/2023 OASIS B1300: Health Literacy Answer Nilo e Recorded Frequency of needing help to read materials from doctor or pharmacy Never 02/11/2023 AUDIT-C Answer Date Recorded Q1: How often do you have a drink containing alcohol? Never 11/22/2023 Q2: How many drinks containi ng alcohol do you have on a typical day when you are drinking? Patient does not drink Q3: How often do you have si x or more drinks on one occasion? Never 11/22/2023 PHQ-2 Answer Date Recorded PHQ-2 Total Score (If total score is 3 or more points, staff should administer the PHQ-9) 0 02/18/2022 Personal Safety Answer Date Recorded Have you ever been in or are you currently in a harmful physical or emotional relationship or is someone making you feel afraid or unsafe? 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 Gender Identity Not on file Sexual Orientation Not on file Last Filed Vital Signs Vital Sign Reading Time Taken Comments Blood Pressure 145/90 09/07/2024 12:59 PM CDT Pulse 96 09/07/2024 12:59 PM CDT Temperature 36.4 C (97.5 F) 08/28/2024 12:23 PM CDT Respiratory Rate 18 08/28/2024 11:15 AM CDT Oxygen Saturation 94% 09/07/2024 12:59 PM CDT Inhaled Oxygen Concentration - - Weight 88.9 kg (196 lb) 09/07/2024 12:59 PM CDT Height 160 cm (5' 3) 09/07/2024 12:59 PM CDT Body Mass Index 34.72 09/07/2024 12:59 PM CDT Plan of Treatment Not on file Medical Devices Implanted Type Area Community Health Program Coordinator Device Identifier Shelf Expiration Date Model / Serial / Lot Patell Bilateral: Knee [employer] Sidra Upsylon 35.4cm Elongation Profile Lightweight Large Pore Low [id number] - [id number] Implanted:Qty: 1 on 01/13/2022 by Tyrell Colunga MD at [facility] N/A: Vagina [employer] Sidra 12/11/2023 [id number] / / [id number] [employer]/C R Bard Mesh, 30x30 Phasix Bard [id number] - [id number] Implanted:Qty: 1 on 11/22/2023 by Mika Moore MD at [facility] N/A: Abdomen [employer]/C R Bard [id number] 05/10/2025 [id number] / / [id number] Procedures Procedure Name Priority Date/Time Associated Diagnosis Comments ERYTHROCYTE SEDIMENTATION RATE Routine 08/28/2024 1:42 PM CDT MRSA (methicillin resistant Staphylococcus aureus) LIPID PANEL Routine 08/28/2024 1:24 PM CDT Medicare annual wellness visit, subsequent Mixed hyperlipidemia COMPREHENSIVE METABOLIC PANEL Routine 08/28/2024 1:24 PM CDT Medicare annual wellness visit, subsequent Mixed hyperlipidemia Hypertension, essential CBC WITH AUTO DIFFERENTIAL Routine 08/28/2024 1:24 PM CDT Medicare annual wellness visit, subsequent Hypertension, essential Gastroesophageal reflux disease without esophagitis POCT URINALYSIS DIPSTICK Routine 08/28/2024 1:16 PM CDT Medicare annual wellness visit, subsequent POCT HEMOGLOBIN A1C Routine 08/28/2024 1 :16 PM CDT Medicare annual wellness visit, subsequent COLONOSCOPY 04/21/2021 8:04 AM CORD TIRE BUILDER HM MAMMOGRAPHY Routine 03/09/2021 from Last 3 Months or Most Recently Relevant to Health Maintenance Results * Erythrocyte sedimentation rate (08/28/2024 1:42 PM CDT) ESR 5.00 0.00 - 15.00 mm/hr [facility] Blood 08/28/2024 1:42 PM CDT 08/28/2024 1:50 PM CDT Shine Walker MD LAB BLOOD ORDERABLES Final Result [facility] [address] [place] [address] * CBC with auto differential (08/28/2024 1:24 PM CDT) WBC 4.6 3.5 - 10.0 K/uL [facility] RBC 4.43 3.50 - 5.50 M/uL [facility] Hemoglobin 12.7 11.5 - 16.5 g/dL [facility] Hematocrit 37.0 35.0 - 55.0 % [facility] MCV 83.6 75.0 - 100.0 fL [facility] MCH 28.70 25.00 - 35.00 pg [facility] MCHC 34.40 31.00 - 38.00 g/dL [facility] RDW 14.5 11.0 - 16.0 % [facility] Platelets 274 140 - 400 K/uL [facility] MPV 8.6 8.0 - 11.0 fL [facility] Granulocyte, Absolute 2.7 1.2 - 8.0 K/uL [facility] Lymphocyte, Absolute 1.4 0.5 - 5.0 K/uL [facility] Monocyte, Absolute 0.5 0.1 - 1.5 K/uL [facility] Granulocyte, Percentage 59.7 35.0 - 80.0 % [facility] Lymphocyte, Percentage 31.0 15.0 - 50.0 % [facility] Monocyte, Percentage 9.3 2.0 - 15.0 % [facility] Blood 08/28/2024 1:24 PM CDT 08/28/2024 1:50 PM CDT Shine Walker MD LAB BLOOD ORDERABLES Final Result Performing Organization Address [facility] [email or web address]] Co de Phone Number [facility] [address] [place] [address] * (ABNORMAL) Lipid panel (08/28/2024 1:24 PM CDT) Triglyceride 210(H) 0 - 150 mg/dL [facility] Cholesterol 150 0 - 200 mg/dL [facility] HDL 47 >45 mg/dL [facility] LDL-Calculated 61 mg/dL [facility] CHOL/HDL Risk Ratio 3 Ratio [facility] LDL/HDL Risk Ratio 1 Ratio [facility] Blood 08/28/2024 1:24 PM CDT 08/28/2024 1:50 PM CDT Shine Walker MD LAB BLOOD ORDERABLES Final Result Performing Organization Address [facility] [[email or web address]] Co de Phone Number [facility] [address] [place] [address] * (ABNORMAL) Comprehensive metabolic panel (08/28/2024 1:24 PM CDT) Glucose 103 74 - 200 mg/dL [facility] BUN 8(L) 18 - 23 mg/dL [facility] Creatinine 0.8 0.7 - 1.3 mg/dL [facility] eGFR 74 mL/min/1.7 3m2 [facility] BUN/Creat Ratio 10 Ratio [facility] Bilirubin, Total 0.5 0.0 - 1.2 mg/dL [facility] AST (SGOT) 17 0 - 32 U/L [facility] ALT (SGPT) 12 10 - 35 U/L [facility] Alkaline phosphatase 85 35 - 104 U/L [facility] Calcium 9.5 8.8 - 10.2 mg/dL [facility] Sodium 139 135 - 145 mEq/L [facility] Potassium 4.2 3.5 - 5.1 mEq/L [facility] Chloride 101 98 - 107 mEq/L [facility] CO2 27.7 22.0 - 32.0 mEq/L [facility] Anion Gap 10 3 - 12 mEq/L [facility] Total Protein 6.2 6.0 - 8.1 g/dL [facility] Albumin 4.0 3.5 - 5.2 g/dL [facility] Globulin 2.2 g/dL [facility] Albumin/Globulin 1.9 Ratio [facility] Blood 08/28/2024 1:24 PM CDT 08/28/2024 1:50 PM CDT Shine Walker MD LAB BLOOD ORDERABLES Final Result Performing Organization Address City/State/[facility] [[email or web address]] Co de Phone Number [facility] [address] [place] [address] * (ABNORMAL) POCT hemoglobin A1c (08/28/2024 1:16 PM CDT) Hemoglobin A1C, POC 5.9 4.0 - 5.6 % Blood 08/28/2024 1:16 PM CDT Shine Walker MD POINT OF CARE TEST ORDERAB LES Final Result * (ABNORMAL) POCT urinalysis dipstick (08/28/2024 1:16 PM CDT) Color, Urine, POC Yellow Clarity, ur, POC Clear Clear Glucose, ur, POC Negative Negative MG/DL Bilirubin, ur, POC Negative Negative, Small, Moderate, Large Ketones, ur, POC Negative Negative Specific [place], POC 1.030 1.003 - 1.030 Blood, ur, POC Trace(A) Negative pH, ur, POC 6.0 5.0 - 8.0 Protein, ur, POC Negative Negative Urobilinogen, urine, POC 0.2 0.2 - 1.0 mg/dL Nitrite, ur, POC Negative Negative Leukocytes, ur, POC Negative Negative Lot Number [id number] Urine 08/28/2024 1:16 PM CDT us Shine Walker MD POINT OF CARE TEST ORDERAB LES Final Result * COLONOSCOPY (04/21/2021 8:04 AM CORD TIRE BUILDER) Anatomical Region Laterality Modality Other Narrative Procedure Note Orquidea Whalen MD - 04/21/2021 8:04 AM CST [facility] Patient Name: Ana Laura Burroughs Procedure Date: 04/21/2021 8:04 AM Date of : 1950 Admit Type: Outpatient Age: 70 Gender: Female Attending MD: Orquidea Whalen M.D. Room: [facility] ENDOSCOPY ROOM 3 Note Status: Finalized Procedure: Colonoscopy Indications: Last colonoscopy: April 2017, Abdominal pain inthe left lower quadrant Referring MD: Hilario Negron M.D. Providers: Orquidea Whalen M.D. Medicines: Monitored Anesthesia Care Complications: No immediate complications. Estimated Blood Loss: Estimated blood loss was minimal. Procedure: Pre-Anesthesia Assessment: - Prior to the procedure, a History and Physicalwas performed, and patient medications, allergies and sensitivities were reviewed. The patient'stolerance of previous anesthesia was reviewed. - Immediately prior to administration ofmedications, the patient was re-assessed for adequacy to receive sedatives. - The risks and benefits of the procedure and the sedation options and risks were discussed with the patient. All questions were answered and informed consent was obtained. The benefits, risks and alternatives of theprocedure and sedation were discussed and informed consentwas obtained. All questions were answered. Please referto the signed informed consent document in the medical record. The scope was passed under direct vision.The [id number] endoscope was introduced through the anus and advanced to the cecum, identified by appendiceal orifice and ileocecal valve. The colonoscopy was performed without difficulty. The patient tolerated the procedure well. Abdominal pressure was utilized. The quality of the bowel preparation was evaluated using the BBPS (BostonBowel Preparation Scale) with scores of: Right Colon = 2 (minor amount of residual staining, small fragmentsof stool and/or opaque liquid, but mucosa seen well), Transverse Colon = 2 (minor amount of residual staining, small fragments of stool and/or opaque liquid, but mucosa seen well) and Left Colon = 2 (minor amount of residual staining, small fragmentsof stool and/or opaque liquid, but mucosa seen well).The total BBPS score equals 6. The bowel preparationused was GoLYTELY via split dose instruction. Thequality of the bowel preparation was good. Findings: The perianal and digital rectal examinations were normal. Multiple small and large-mouthed diverticula were found in thesigmoid colon, descending colon, transverse colon and hepatic flexure. Therewas evidence of several impacted diverticula. Two sessile polyps were found in the transverse colon and cecum. The polyps were 2 mm in size. These polyps were removed with a jumbo cold forceps. Resection and retrieval were complete. Hemorrhoids were found during retroflexion. The hemorrhoids weremedium to large sized. Impression: - Diverticulosis in the sigmoid colon, in the descending colon, in the transverse colon and atthe hepatic flexure. There was evidence of an impacted diverticulum. - Two 2 mm polyps in the transverse colon and inthe cecum, removed with a jumbo cold forceps. Resectedand retrieved. - Hemorrhoids. Recommendation: - The patient will be observed post-procedure,until all discharge criteria are met. - Await pathology results. - Repeat colonoscopy in 7 years for surveillancebased on pathology results. - Biopsy results are typically available within 7-10 days and you will be contacted with the results. If you have not recieved your results within this timeframe, please call [phone] regarding your results. - Contact Information: During normal business hours - [facility] Coord[facility]: [phone] After hours, evening, nights, weekends and holidays- Please call the hospital lacing operator at and ask for the GI fellow environmental conflict manager. Electronically Signed By: Orquidea Whalen M.D. Orquidea Whalen M.D. 04/21/2021 8:40:28 AM . Number of Addenda: 0 Note Initiated On: 04/21/2021 8:04 AM Recognized by the [place] [employer] for promoting quality in endoscopy Orquidea Whalen MD ENDOSCOPY PROCEDURES Fin al Result * HM MAMMOGRAPHY (03/09/2021) Historical Provider HEALTH MAINTENANCE Final Result from Last 3 Months or Most Recently Relevant to Health Maintenance Insurance MEDICARE [facility] [employer] MEDICARE [facility] [employer] MEDICARE [facility] INSURANCE MEDICARE [place] INSURANCE MEDICARE [employer] Advance Directives For more information, please contact: [phone] Documents on File Type Date Recorded Patient Regulatory Intern Expl anation ADVANCE DIRECTIVE 11/30/2023 4:26 AM POWER OF LEADED GLASS INSTALLER-MEDICAL * Full Code (Latest Code Status on File) Date Activated Date Inactivated Comments 11/22/2023 5:25 PM 11/25/2023 4:34 PM * Full Code Date Activated Date Inactivated Comments 12/20/2022 4:36 PM 12/21/2022 9:12 PM * Full Code Date Activated Date Inactivated Comments 09/15/2022 4:02 PM 09/20/2022 9:32 PM * Full Code Date Activated Date Inactivated Comments 07/21/2022 3:30 PM 07/26/2022 8:42 PM * Full Code Date Activated Date Inactivated Comments 01/13/2022 6:57 PM 01/16/2022 2:51 PM Care Teams Signal Wirer Relationship Specialty Start Date End Date Shine Walker MD PCP - General Internal Medicine 02/18/22 Nancy Arias MD [address] [facility] [id number] [place] [address] Consulting Physician Colon and Rectal Surgery 07/26/22 Mika Moore MD [address] [facility] [phone] [place] [address] Consulting Physician General Surgery 08/08/23
--- OUTSIDE RECORDS SUMMARY | 2024-11-27 12:55 | XMS_ITS | Clinical Summary ---
Author Organization [facility] al Address [address] [place] [address] Care Team Providers Care Human Resources Analyst Name Role Phone Shine Walker MD Primary Care Provider [phone] Nancy Arias MD Unavailable [phone] Mika Moore MD Unavailable [phone] Allergies Active Allergy Reactions Criticality Noted Date [...] 24 Overview (03/08/2024): [place] [facility] [place] to confirm pt has taken [...] (10/08/2021): Added automatically from request for surgery [id number] Vaginal wall prolapse 10/08/2021 Overview (10/08/2021): Added automatically from request for surgery [id number] Cystocele, midline 05/21/2021 LUQ pain 03/25/2021 Overview (03/25/2021): Added automatically from request for surgery [id number] Other chest pain 07/17/2019 History of peptic ulcer 03/14/2019 Overview (03/14/2019): Added automatically from request for surgery [id number] Nausea 03/14/2019 Overview (09/10/2021): Sees Dr Whalen [...] Assessment & Plan (02/01/2022 2:33 PM CDT): Chronic, stable Continue to follow with GI Continue [...] (07/23/2022): Added automatically from request for surgery [id number] Peptic ulcer disease 06/20/2017 022 Abdominal pain 04/19/2017 02/01/2022 BMI 39.0-39.9,adult 04/19/2017 02/02/20 22 Encounters Date Type Department Care Team Description 10/31/2024 Telephone Extension [facility] [address] [place] [id number] Lorrie العراقي NP Test Results 10/30/2024 Orders Only [facility] Surgery [address] 8th [place] [address] [place] [phone] Juan Cisneros MD Varicose veins of both lower extremities with pain (Primary Dx) 10/30/2024 Telephone [facility] Surgery [address] Floor 1 [place] [phone] Jessica Gill 09/07/2024 1:00 PM CDT Office Visit [facility] [address] [place] [address] Lorrie العراقي NP Acute pain of right shoulder (Primary Dx); Fall, initial encounter; Pain in right arm 08/28/2024 1:00 PM CDT Office Visit [facility] [address] [place] [address] Shine Walker MD Medicare annual wellness visit, subsequent (Primary Dx); Mixed hyperlipidemia; Generalized anxiety disorder; Hypertension, essential; Gastroesophageal reflux disease without esophagitis; Dyspepsia; Colon cancer screening; Class 2 severe obesity due to excess calories with serious comorbidity and body mass index (BMI) of 36.0 to 36.9 in adult (HCC); Cystocele, midline; Prediabetes; Tubular adenoma; MRSA (methicillin resistant Staphylococcus aureus) 08/28/2024 11:00 AM CDT Office Visit [facility] Infectious Diseases [address] [place] [phone] Shine Baez MD Infected prosthetic mesh of abdominal wall, sequela (Primary Dx); MRSA infection; High risk medication use 08/28/2024 Results Follow-Up [facility] [address] [place] [phone] Shine Walker MD POCT hemoglobin A1c, POCT urinalysis dipstick, CBC with auto differential, Additional followed-up results: 3 from Last 3 Months Immunizations Immunization Administration Dates Next Due Hep A, Adult 06/12/2199 Hep A, Unspecified 06/12/1999 Hep B Vaccine 06/12/2199 Influenza, Unspecified 03/13/2021(Deferred: Denise ent Refused) Pfizer SARS-CoV-2 Monovalent Vaccination (12+ Yrs) PURPLE 08/14/2020,07/21/2020 Pneumococcal Conjugate PCV 13 01/08/2016 Pneumococcal Conjugate Pcv20 02/25/2023 Pneumococcal Polysaccharide PPV23 04/02/2020 RSV, Bivalent, Protein Subun it Rsvpref, Diluent (Abrysvo) 04/13/2024 Tdap 10/28/2016 ZOSTER LIVE 06/12/1999 ZOSTER Recombinant 03/29/2021,05/08/2019 Surgical History Surgery Date Site/Laterality Comments BLADDER SURGERY Bladder Surgery - (Added by TW Conv) [place] UNLISTED PROCEDURE ABDOME N PERITONEUM & OMENTUM Hernia Repair - (Added by TW Conv) [place] TOTAL ABDOMINAL HYSTERECT W/WO RMVL TUBE OVARY Hysterectomy - (Added by TW Conv) [place] ARTHROPLASTY KNEE TIBIAL PLATEAU Knee Replacement - (Added by TW Conv) RECTOCELE REPAIR Rectocele Repair - (Added by TW Conv) VAGINA SURGERY Vaginal Surgery Colpopexy Abdominal Approach - 10/20/2011 (Added by TW Conv) VAGINA SURGERY Vaginal Surgery - Cystocele, rectocele & prolapse repair 01/24/12 (Added by TW Conv) CHOLECYSTECTOMY COLONOSCOPY UPPER GASTROINTESTINAL ENDOSCOPY HERNIA REPAIR REPLACEMENT TOTAL KNEE BILATERAL INCISIONAL HERNIA REPAIR 11/22/2023 Open abdominal wall reconstruction with bilateral TAR - Phasix Medical History Medical History Date Comments Nocturia Nocturia - (Adde d by TW Conv) Diverticulosis Cataract Uterine prolapse Anxiety H pylori ulcer Mass of upper extremity 02/24/2015 BPPV (benign paroxysmal posi tional vertigo), unspecified laterality 08/17/2016 Peptic ulcer disease 06/20/2017 Other chest pain 07/17/2019 Cystocele, midline 05/21/2021 Diverticulitis 07/23/2022 Added shameka fowler from request for surgery [id number] Motion sickness GERD (gastroesophageal reflux disease) Family History Medical History Relation Name Comments Colon cancer Father Lymphoma Father Family history of lymphoma - (Added by TW Conv)/Family history of lymphoma - (Added by TW Conv) Esophageal cancer Maternal Grandfather Hypertension Mother Family history of hypertension - (Added by TW Conv)/Family history of hypertension - (Added by TW Conv) Other Mother Family history of varicose veins - (Added by TW Conv)/Family history of varicose veins - (Added by TW Conv) Anesthesia problems Neg Hx Relation Name Status Comments Father Maternal Grandfather Maternal Grandmother Mother Paternal Grandfather Paternal Grandmother Social History Tobacco Use Types Packs/Day Years [...] on file Legal Sex Female 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 Gender Identity Not on file Sexual Orientation Not on file Obstetrics History Last Filed Vital Signs Vital Sign Reading [...] 09/07/2024 12:59 PM CDT Plan of Treatment Health Maintenance Due Date Last Done Comments Hepatitis C Screening 1950 Depression Screening 02/18/2023 02/18/2022, 02/01/2022, 02/01/2022, Additional history exists Covid-19 Vaccine (5 - 2023-2 5 season) 2024 12/17/2021, 04/15/2021, 08/14/2020, Additional history exists Osteoporosis Screening-Bone Density Scan 03/16/2024 03/16/2022, 05/07/2019 Fall Risk Assessment 11/24/2024 11/25/2023, 09/10/2021, 04/02/2020 Influenza Vaccine (Season Ended) 2025 Well Visit 65+ 08/28/2025 08/28/2024, 08/11, 09/10/2021, Additional history exists DTaP/Tdap/Td Vaccine (2 - Td or Tdap) 10/28/2026 10/28/2016 Colon Cancer Screening-Colonoscopy 04/21/2028 04/21/2021, 05/09/2017 Hepatitis B Screening Completed 06/12/2199 Zoster Vaccine Completed 03/29/2021, 04/14, 06/12/1999 Colon Cancer Screening-CT Colonography Discontinued 04/21/2021, 05/09/2017 Colon Cancer Screening-DNA Stool Discontinued 04/21/20 21, 05/09/2017 Colon Cancer Screening-FIT Discontinued 04/21/2021, Colon Cancer Screening-Sigmoidoscopy Discontinued 04/21/2021, 05/09/2017 Pneumococcal vaccine 65+ Discontinued 023, 04/02/2020, 01/08/2016 Breast Cancer Screening-Mammogram Discontinued 04/24/2024, 04/24/2024, 04/26/2023, Additional history exists Medical Devices Implanted Type Area Unemployment Insurance Director Device Identifier Shelf Expiration Date Model / Serial / Lot Patmarcela Bilateral: Knee [employer] Sidra Upsylon 35.4cm Elongation Profile Lightweight Large Pore Low [id number] - [id number] Implanted:Qty: 1 on 01/13/2022 by Tyrell Colunga MD at [facility] N/A: Vagina [employer] Sidra 12/11/2023 [id number] / / [id number] [employer]/C R Bard Mesh, 30x30 Phasix Bard [id number] - [id number] Implanted:Qty: 1 on 11/22/2023 by Mika Moore MD at [facility] N/A: Abdomen [employer]/C R Bard [id number] 05/10/2025 [id number] / / [id number] Procedures Procedure Name Priority Date/Time Associated Diagnosis [...] wellness visit, subsequent COLONOSCOPY 04/21/2021 8:04 AM INFORMATION TECHNOLOGY DIRECTOR MAMMOGRAPHY Routine 03/09/2021 from Last 3 Months or Most Recently Relevant to Health Maintenance Results * Erythrocyte sedimentation rate (08/28/2024 1:42 PM CDT) ESR 5.00 0.00 - 15.00 mm/hr [facility] Blood 08/28/2024 1:42 PM CDT 08/28/2024 1:50 PM CDT Shine Walker MD LAB BLOOD ORDERABLES Final Result Performing Organization Address City/State/[facility] Co de Phone Number [facility] [address] [place] [address] * CBC with auto differential (08/28/2024 1:24 PM CDT) WBC 4.6 3.5 - 10.0 K/uL [facility] RBC 4.43 3.50 - 5.50 M/uL [facility] Hemoglobin 12.7 11.5 - 16.5 g/dL [facility] Hematocrit 37.0 35.0 - 55.0 % [facility] MCV 83.6 75.0 - 100.0 fL [facility] MCH 28.70 25.00 - 35.00 pg [facility] MCHC 34.40 31.00 - 38.00 g/dL [facility] RDW 14.5 11.0 - 16.0 % [facility] Platelets 274 140 - 400 K/uL [facility] MPV 8.6 8.0 - 11.0 fL [facility] Granulocyte, Absolute 2.7 1.2 - 8.0 K/uL [facility] Lymphocyte, Absolute 1.4 0.5 - 5.0 K/uL [facility] Monocyte, Absolute 0.5 0.1 - 1.5 K/uL [facility] Granulocyte, Percentage 59.7 35.0 - 80.0 % [facility] Lymphocyte, Percentage 31.0 15.0 - 50.0 % [facility] Monocyte, Percentage 9.3 2.0 - 15.0 % [facility] Blood 08/28/2024 1:24 PM CDT 08/28/2024 1:50 PM CDT Shine Walker MD LAB BLOOD ORDERABLES Final Result Performing Organization Address [facility] Co de Phone Number [facility] [address] [place] [address] * (ABNORMAL) Lipid panel (08/28/2024 1:24 PM CDT) Triglyceride 210(H) 0 - 150 mg/dL [facility] Cholesterol 150 0 - 200 mg/dL [facility] HDL 47 >45 mg/dL [facility] LDL-Calculated 61 mg/dL [facility] CHOL/HDL Risk Ratio 3 Ratio [facility] LDL/HDL Risk Ratio 1 Ratio [facility] Blood 08/28/2024 1:24 PM CDT 08/28/2024 1:50 PM CDT Shine Walker MD LAB BLOOD ORDERABLES Final Result Performing Organization Address [facility] Co de Phone Number [facility] [address] [place] [address] * (ABNORMAL) Comprehensive metabolic panel (08/28/2024 1:24 PM CDT) Glucose 103 74 - 200 mg/dL [facility] BUN 8(L) 18 - 23 mg/dL [facility] Creatinine 0.8 0.7 - 1.3 mg/dL [facility] eGFR 74 mL/min/1.7 3m2 [facility] BUN/Creat Ratio 10 Ratio [facility] Bilirubin, Total 0.5 0.0 - 1.2 mg/dL [facility] AST (SGOT) 17 0 - 32 U/L [facility] ALT (SGPT) 12 10 - 35 U/L [facility] Alkaline phosphatase 85 35 - 104 U/L [facility] Calcium 9.5 8.8 - 10.2 mg/dL [facility] Sodium 139 135 - 145 mEq/L [facility] Potassium 4.2 3.5 - 5.1 mEq/L [facility] Chloride 101 98 - 107 mEq/L [facility] CO2 27.7 22.0 - 32.0 mEq/L [facility] Anion Gap 10 3 - 12 mEq/L [facility] Total Protein 6.2 6.0 - 8.1 g/dL [facility] Albumin 4.0 3.5 - 5.2 g/dL [facility] Globulin 2.2 g/dL [facility] Albumin/Globulin 1.9 Ratio [facility] Blood 08/28/2024 1:24 PM CDT 08/28/2024 1:50 PM CDT Shine Walker MD LAB BLOOD ORDERABLES Final Result Performing Organization Address City/State/[facility] Co de Phone Number [facility] [address] [place] [address] * (ABNORMAL) POCT hemoglobin A1c (08/28/2024 1:16 [...] Large Ketones, ur, POC Negative Negative Specific [place], POC 1.030 1.003 - 1.030 Blood, ur, POC Trace(A) Negative pH, ur, POC 6.0 5.0 - 8.0 Protein, ur, POC Negative Negative Urobilinogen, urine, POC 0.2 0.2 - 1.0 mg/dL Nitrite, ur, POC Negative Negative Leukocytes, ur, POC Negative Negative Lot Number [id number] Urine 08/28/2024 1:16 PM CDT Shine Walker MD POINT OF CARE TEST ORDERAB LES Final Result * COLONOSCOPY (04/21/2021 8:04 AM INFORMATION TECHNOLOGY DIRECTOR) Anatomical Region Laterality Modality Other Narrative Procedure Note Orquidea Whalen MD - 04/21/2021 8:04 AM CST [facility] Patient Name: Ana Laura Burroughs Procedure Date: 04/21/2021 8:04 AM Date of : 1950 Admit Type: Outpatient Age: 70 Gender: Female Attending MD: Orquidea Whalen M.D. Room: [facility] ENDOSCOPY ROOM 3 Note Status: Finalized [...] The scope was passed under direct vision.The CF [id number] endoscope was introduced through the anus and [...] your results within this timeframe, please call [phone] regarding your results. - Contact Information: During normal business hours - Please call theNurse Coordinator: [phone] After hours, evening, nights, weekends and holidays- Please call the hospital regasification plant operator at and ask for the GI fellow correctional supervising cook. Electronically Signed By: Orquidea Whalen M.D. Orquidea Whalen M.D. 04/21/2021 8:40:28 AM . Number of Addenda: 0 Note Initiated On: 04/21/2021 8:04 AM Recognized by the [place] [employer] for promoting quality in endoscopy Orquidea Whalen MD ENDOSCOPY PROCEDURES Fin al Result * HM MAMMOGRAPHY (03/09/2021) Historical Provider HEALTH MAINTENANCE Final Result from Last 3 Months or Most Recently Relevant to Health Maintenance Insurance MEDICARE [employer] MEDICARE [employer] MED[employer]ARE [employer] MEDICARE [employer]ANCE MEDICARE [facility] INSURANCE Advance Directives For more information, please contact: [phone] Documents on File Type Date Recorded Patient Turnaround Engineer Expl anation ADVANCE DIRECTIVE 11/30/2023 4:26 AM POWER OF STATISTICIAN MATHEMATICAL-MEDICAL * Full Code (Latest Code Status on [...] 6:57 PM 01/16/2022 2:51 PM Care Teams Human Resources Analyst Relationship Specialty Start Date End Date Shine Walker MD PCP - General Internal Medicine 02/18/22 Nancy Arias MD [address] [facility] [place] [phone] [place] [address] Consulting Physician Colon and Rectal Surgery 07/26/22 Mika Moore MD [address] [facility] [place] [phone] [place] [address] Consulting Physician General Surgery 08/08/23
--- NOTE | 2024-11-27 14:51 | REHSTMBS ---
Assessment and note entered by Jane Huggins FLOORS BUFFER Modified Barium Swallow Evaluation ICD-10 Condition Codes (ST) Dysphagia, unspecified R13.1 Feeding Type Recommended Oral Food Consistency Regular, Level 7 Liquid Consistency Thin (0) ST Clinical Summary The above pleasant and cooperative pt was seen for an outpatient modified barium swallow. She was alert, oriented, and able to follow commands. She is on a regular diet and reports difficulty in that pills get stuck in her throat but it is not consistent. She denied coughing or choking associated with liquids or solids. Oral mucosa is normal; natural dentition is in good condition; Informal oral peripheral exam revealed lingual and labial structures to be normal. She was able to dry swallow on command and exhibited clear vocal quality. The patient was seated for a lateral view and presented with 5 ml of thin liquid barium via a spoon, pudding consistency barium via a spoon, a cracker coated with barium pudding via a spoon, and uncontrolled thin liquid barium. This was presented via a cup & straw. She was also tested with a barium pill taken with water. Oral preparatory and oral phase symptoms: none. Pharyngeal phase symptoms: WFL; very shallow/flash laryngeal penetration occurred (age appropriate) which cleared with no aspiration risk. Esophageal stage symptoms: none. No aspiration occurred and the pill did not lodge. Impressions: Normal swallow Ability No further ST is warranted at this time.
== END 2024-11-27 12:24 | disposition home or self-care (01) ==
PROVIDERS: Visit Provider Otolaryngology
DX: R13.10 Dysphagia, unspecified (principal)
CPT/HCPCS: 92611

== ENCOUNTER 2025-01-10 14:18 | Emergency (ER) | payer MEDICARE, SELFPAY ==
--- NOTE | ~2025-01-10 | XR_ITS ---
CHEST RADIOGRAPH, PA AND LATERAL CLINICAL HISTORY: CP . COMPARISON: 08/09/2024 TECHNIQUE: PA and lateral views of the chest. FINDINGS The cardiomediastinal silhouette is unremarkable. The lungs are clear. IMPRESSION: No focal infiltrate or effusion. Reviewed, dictated and finalized at location A.
[2025-01-10 14:19] VITALS: BP 124/62; PULSE 100; RESP 16; TEMP 36.8; O2SAT 99
--- OUTSIDE RECORDS SUMMARY | 2025-01-10 14:22 | XMS_ITS | Referral Summary ---
Author Organization [facility] al Address [address] [place] [address] Care Team Providers Care Autocad Electrical Designer Name Role Phone Shine Walker MD Primary Care Provider [phone] Nancy Arias MD Unavailable [phone] Mika Moore MD Unavailable [phone] Encounters Date Type Department Care Team Description 01/09/2025 Telephone [facility] Surgery [facility]ly [facility] 8th [place] [address] [place] [address] Bria Cuba RN 01/08/2025 8:00 AM CDT Office Visit [facility] Surgery [facility] 8th [place] [address] [place] [address] Lj Sadler MD Varicose veins of right lower extremity with pain (Primary Dx) 12/26/2024 Telephone [facility] [facility] Minimally Invasive Surgery [address] [facility] 12th Floor, [place] [address] Mika Moore MD Scheduling Appointments 12/26/2024 [facility] - [facility] Minimally Invasive Surgery [facility]ly [facility] 12th Floor, [place] [address] Mika Moore MD Scheduling Appointments 12/20/2024 8:00 AM CDT Ancillary Procedure [facility] Vascular Lab at the [address] [place] [address] [place] [address] Varicose veins of both lower extremities with pain 12/07/2024 Telephone [facility]) - [facility] Minimally Invasive Surgery [address] [facility] 12th Floor, [place] [phone] Mika Moore MD Medical Question/Miscellaneo us 12/05/2024 Telephone [facility] Surgery [address] [facility] Floor 1 [place] [phone] Lj Sadler MD 11/27/2024 Orders Only [facility] [address] [facility] [address] [place] [phone] Shine Walker MD 10/31/2024 Telephone [facility] [address] [place] [address] [address] [facility] [address] [place] [phone] Lorrie العراقي, BUSINESS DEVELOPMENT ASSOCIATE Test Results 10/30/2024 Orders Only [facility] Surgery [address] [facility] 8th [place] [address] [place] [phone] Lj Sadler MD Varicose veins of both lower extremities with pain (Primary Dx) 10/30/2024 Telephone [facility] Surgery [address] [facility] Floor 1 [place] [phone] Jessica Gill from Last 3 Months Allergies Active Allergy Reactions Criticality Noted Date Comments Diphenhydramine Other (See comments) Low 05/31/2019 GI Intolerance GI Intolerance Porcine Skin, Meshed Other (See comments) Low 09/15 Causes infection Medications fluticasone propionate (FLONASE) 50 mcg/actuation nasal sprayIndications:A llergic Rhinitis Administer 2 sprays into each nostril nightly 1 each 4 025 Active fexofenadine (RAFAEL) 60 mg tabletIndications: Perennial allergic rhinitis Take 1 tablet (60 mg total) by mouth as needed (allergies) 90 tablet 2 4 025 Active atorvastatin (LIPITOR) 80 mg tabletIndications: hyperlipidemia Take 1 tablet (80 mg total) by mouth nightly 90 tablet [address] (PROTONIX) 40 mg EC tabletIndications: Gastroesophageal reflux disease without esophagitis,Dyspep jalyn Take 1 tablet (40 mg total) by mouth daily 30 tablet 2 5 Active doxycycline (VIBRAMYCIN) 100 mg capsuleIndications :MRSA (methicillin resistant Staphylococcus aureus) Take 1 tablet/capsule (100 mg total) by mouth every 12 (twelve) hours 180 tablet/capsu le 3 5 026 Active amLODIPine (NORVASC) 5 mg tabletIndications: Hypertension, essential Take 1 tablet (5 mg total) by mouth daily 90 tablet 4 5 026 Active ketoconazole (NIZORAL) 2 % shampoo 5 Active LORazepam (ATIVAN) 1 mg tabletIndications: Generalized anxiety disorder TAKE ONE TABLET BY MOUTH EVERY 8 HOURS NEEDED FOR ANXIETY 60 tablet 1 5 Active meloxicam (MOBIC) 15 mg tabletIndications: Acute pain of right shoulder,Fall, initial encounter,Pain in right arm Take 1 tablet (15 mg total) by mouth daily 30 tablet 5 Active Active Problems Problem Noted Date Diagnosed Date Perennial allergic rhinitis 03/08/2024 Viral upper respiratory tract infection 03/08/20 24 Overview (03/08/2024): [place] [facility] [place] to confirm pt has taken [...] (10/08/2021): Added automatically from request for surgery [id number] Vaginal wall prolapse 10/08/2021 Overview (10/08/2021): Added automatically from request for surgery [id number] Cystocele, midline 05/21/2021 LUQ pain 03/25/2021 Overview (03/25/2021): Added automatically from request for surgery [id number] Other chest pain 07/17/2019 History of peptic ulcer 03/14/2019 Overview (03/14/2019): Added automatically from request for surgery [id number] Nausea 03/14/2019 Overview (09/10/2021): Sees Dr Whalen [...] (07/23/2022): Added automatically from request for surgery [id number] Peptic ulcer disease 06/20/2017 022 Abdominal pain [...] on file Legal Sex Female 7:40 PM BACK SEWER Gender Identity Not on file Sexual Orientation Not on file Last Filed Vital Signs Vital Sign Reading Time Taken Comments Blood Pressure 115/74 01/08/2025 8:20 AM CDT Pulse 96 01/08/2025 8:20 AM CDT Temperature 36.4 C (97.5 F) 08/28/2024 12:23 PM CDT Respiratory Rate 18 08/28/2024 11:15 AM CDT Oxygen Saturation 97% 01/08/2025 8:20 AM CDT Inhaled Oxygen Concentration - - Weight 88.9 kg (196 lb) 01/08/2025 8:20 AM CDT Height 160 cm (5' 3) 09/07/2024 12:59 PM CDT Body Mass Index 34.72 09/07/2024 12:59 PM CDT Plan of Treatment Not on file Medical Devices Implanted Type Area Health Companion Device Identifier Shelf Expiration Date Model / Serial / Lot Saji Bilateral: Knee [employer] Sidra Upsylon 35.4cm Elongation Profile Lightweight Large Pore Low [id number] - [id number] Implanted:Qty: 1 on 01/13/2022 by Tyrell Colunga MD at [facility] N/A: Vagina [employer] Sidra 12/11/2023 [id number] / / [id number] [employer]/C R Bard Mesh, 30x30 Phasix Bard [id number] - [id number] Implanted:Qty: 1 on 11/22/2023 by Mika Moore MD at [facility] N/A: Abdomen [employer]/C R Bard [id number] 05/10/2025 [id number] / / [id number] Procedures Procedure Name Priority Date/Time Associated Diagnosis Comments US VENOUS REFLUX BILATERAL Schedule Routine, Read Routine (OP Routine) 12/20/2024 9:18 AM CDT Varicose veins of both lower extremities with pain SCAN - RADIOLOGY/IMAGING 11/27/2024 2:45 PM CDT COLONOSCOPY 04/21/2021 8:04 AM BACK SEWER MAMMOGRAPHY Routine 03/09/2021 from Last 3 Months or Most Recently Relevant to Health Maintenance Results * US Venous Reflux Bilateral (12/20/2024 9:18 AM CDT) Anatomical Region Laterality Modality Vascular Bilateral Ultrasound 12/20/2024 7:53 AM CDT Narrative 12/20/2024 8:50 PM CDT [facility] - Department of Vascular Surgery, Vascular Laboratory [address] [place] [address] Lower Extremity Venous Reflux Duplex Report Patient Name: ANA LAURA PERSAUD : 1950 (74y 2m) Study Date: 12/20/2024 7:53:38 AM Gender: F Tech: Location: [facility] Ref Provider: LJ SADLER Quality: Adequate Order Provider: LJ SADLER PROCEDURES: Vascular Report: Lower extremity venous valvular insufficiency or reflux evaluation is performed with rapid cuff inflator. Veins evaluated are sapheno-femoral junction, great saphenous, common femoral, femoral, profunda femoral, popliteal, sapheno-popliteal and small saphenous veins bilaterally. Criteria for superficial vein reflux is retrograde blood flow greater than 0.5 seconds. INDICATIONS: I83.813 Varicose veins of bilateral lower extremities with pain. MEASUREMENTS: Right Leg Value Units Left Leg Value Units Rt Sapheno-Femoral Junction 0.78 cm Lt Sapheno-Femoral Junction 0.87 cm Rt Great Saphenous Thigh - Proximal 0.49 cm Lt Great Saphenous Thigh - Proximal 0.45 cm Rt Great Saphenous Thigh - Mid UTL cm Lt Great Saphenous Thigh - Mid UTL cm Rt Great Saphenous Thigh - Distal UTL cm Lt Great Saphenous Thigh - Distal UTL cm Rt Great Saphenous Knee 0.16 cm Lt Great Saphenous Knee 0.48 cm Rt Great Saphenous Calf - Proximal 0.29 cm Lt Great Saphenous Calf - Proximal 0.38 cm Rt Great Saphenous Calf - Mid 0.19 cm Lt Great Saphenous Calf - Mid 0.19 cm Rt Great Saphenous Calf - Distal 0.37 cm Lt Great Saphenous Calf - Distal 0.20 cm Rt Sapheno-Popliteal Junction does not connect to popliteal vein cm Lt Sapheno-Popliteal Junction does not connect to popliteal vein cm Rt Small Saphenous Proximal 0.30 cm Lt Small Saphenous Proximal 0.38 cm Rt Small Saphenous Mid 0.28 cm Lt Small Saphenous Mid 0.34 cm Rt Small Saphenous Distal 0.27 cm Lt Small Saphenous Distal 0.30 cm Rt Anterior Saphenous Proximal 0.79 cm Lt Anterior Saphenous Proximal 0.86 cm Rt Anterior Saphenous Mid 0.58 above fascia / branch 0.45cm, reflux 506ms cm Lt Anterior Saphenous Mid 0.25 above fascia cm Rt Anterior Saphenous Distal 0.49 above fascia cm Lt Anterior Saphenous Distal 0.18 above fascia cm Rt CFV Reflux Time 0.00 ms Lt CFV Reflux Time 0.00 ms Rt SFJ Reflux Time 3249.00 ms Lt SFJ Reflux Time 4559.00 ms Rt GSV Thigh Reflux Time 814.00 ms Lt GSV Thigh Reflux Time 0.00 ms Rt PFV Reflux Time 0.00 ms Lt PFV Reflux Time 0.00 ms Rt FV Mid Reflux Time 910.00 ms Lt FV Mid Reflux Time 0.00 ms Rt GSV Knee Reflux Time 0.00 ms Lt GSV Knee Reflux Time 704.00 ms Rt GSV Below Knee Reflux Time 0.00 ms Lt GSV Below Knee Reflux Time 352.00 ms Rt Popliteal Reflux Time 0.00 ms Lt Popliteal Reflux Time 0.00 ms Rt Prox SSV Reflux Time 0.00 ms Lt Prox SSV Reflux Time 0.00 ms Rt Mid SSV Reflux Time 0.00 ms Lt Mid SSV Reflux Time 425.00 ms Rt ASV Reflux Time 5453.00 ms Lt ASV Reflux Time 5703.00 ms Right Leg Value Units Left Leg Value Units FINDINGS: Performing Storage Management Architect: Ayah Valdovinos RVT, RDMS. Patient positioning: Reflux testing is performed in standing position. Bilateral: Unable to follow bilateral [place] great saphenous veins from mid-distal thigh. GSV arises again around the knee in both legs. Large anterior saphenous veins noted in bilateral thighs, area of patient concern. Right: The common femoral, femoral, popliteal veins were evaluated with compression maneuvers. No evidence of deep vein thrombus by duplex, proximal to the calf. Noninvasive venous studies cannot rule out an isolated calf vein obstruction. On the right venous reflux noted in sapheno-femoral junction, proximal great saphenous vein and anterior saphenous branch of GSV. Electric Operator vein noted at mid calf measures 0.43cm. 11cm from medial malleolus. Reflux time 301ms. ASV prox thigh 0.79cm, reflux time 5453ms ASV mid thigh 0.58cm above fascia / branch to knee 0.45cm, reflux 506ms ASV distal thigh 0.49cm above fascia ASV knee 0.51cm above fascia, reflux time 4896ms ASV prox calf 0.54cm above fascia, reflux time 1936ms ASV mid calf 0.33cm above fascia Left: The common femoral, femoral, popliteal veins were evaluated with compression maneuvers. No evidence of deep vein thrombus by duplex, proximal to the calf. Noninvasive venous studies cannot rule out an isolated calf vein obstruction. Partial superficial vein thrombus left anterior saphenous vein branch at proximal calf. On the left venous reflux noted in sapheno-femoral junction, anterior saphenous branch of GSV and great saphenous vein at the knee. ASV prox thigh 0.86cm, reflux time 5703ms ASV mid thigh 0.25cm above fascia, multiple small branches noted ASV distal thigh 0.18cm above fascia ASV knee 0.29cm above fascia, reflux time 1797ms ASV prox calf 0.33cm above fascia, reflux time 4625ms / partial superficial vein thrombus noted in small segment of this vein ASV mid calf 0.27cm above fascia ASV distal calf 0.23cm above fascia - CONCLUSIONS: There is no evidence of acute deep vein thrombosis in the lower extremities bilaterally. Noninvasive venous studies cannot rule out isolated calf vein obstruction. On the right venous reflux noted in sapheno-femoral junction, proximal great saphenous vein and anterior saphenous branch of GSV. On the left venous reflux noted in sapheno-femoral junction, anterior saphenous branch of GSV and great saphenous vein at the knee. Superficial vein thrombus in the left lower extremity. HISTORY: Patient reports prior bilateral leg varicose vein treatment around 2014. Current area of concern is medial thigh and knee of bilateral legs. Obesity, HTN, HLD, prediabetes. PREVIOUS STUDIES: No previous studies for comparison. DISCLAIMER: The study images and the final report will be retained in the patient chart by the Vascular Laboratory for the legally required time period. This chart constitutes the legal record of any testing performed. ATTESTATION: I have reviewed and interpreted the pertinent images and measurements of this study. I attest to the conclusions in the final report that is provided above. Electronically Signed By: Hosea Espinoza MD FACS 12/20/2024 8:13:37 PM CDT Procedure Note Hosea Espinoza MD - 12/20/2024 [facility] - Department of Vascular Surgery,Vascular Laboratory [address] [place] [address] Lower Extremity Venous Reflux Duplex Report Patient Name: ANA LAURA PERSAUD : 1950 (74y 2m) Study Date: 12/20/2024 7:53:38 AM Gender: F Tech: TH Location: [facility] Ref Provider: LJ SADLER Quality: Adequate Order Provider: LJ SADLER PROCEDURES: Vascular Report: Lower extremity venous valvular insufficiency or reflux evaluation isperformed with rapid cuff inflator. Veins evaluated are sapheno-femoral junction, great saphenous, commonfemoral, femoral, profunda femoral, popliteal, sapheno-popliteal and small saphenous veinsbilaterally. Criteria for superficial vein reflux is retrograde blood flow greater than0.5 seconds. INDICATIONS: I83.813 Varicose veins of bilateral lower extremities with pain. MEASUREMENTS: Right Leg Value Units Left Leg Value Units Rt Sapheno-Femoral Junction 0.78 cm Lt Sapheno-Femoral Junction 0.87 cm Rt Great Saphenous Thigh - Proximal 0.49 cm Lt Great Saphenous Thigh -Proximal 0.45 cm Rt Great Saphenous Thigh - Mid UTL cm Lt Great Saphenous Thigh - Mid UTLcm Rt Great Saphenous Thigh - Distal UTL cm Lt Great Saphenous Thigh - DistalUTL cm Rt Great Saphenous Knee 0.16 cm Lt Great Saphenous Knee 0.48 cm Rt Great Saphenous Calf - Proximal 0.29 cm Lt Great Saphenous Calf -Proximal 0.38 cm Rt Great Saphenous Calf - Mid 0.19 cm Lt Great Saphenous Calf - Mid 0.19cm Rt Great Saphenous Calf - Distal 0.37 cm Lt Great Saphenous Calf - Distal0.20 cm Rt Sapheno-Popliteal Junction does not connect to popliteal vein cm LtSapheno-Popliteal Junction does not connect to popliteal vein cm Rt Small Saphenous Proximal 0.30 cm Lt Small Saphenous Proximal 0.38 cm Rt Small Saphenous Mid 0.28 cm Lt Small Saphenous Mid 0.34 cm Rt Small Saphenous Distal 0.27 cm Lt Small Saphenous Distal 0.30 cm Rt Anterior Saphenous Proximal 0.79 cm Lt Anterior Saphenous Proximal 0.86cm Rt Anterior Saphenous Mid 0.58 above fascia / branch 0.45cm, reflux 506mscm Lt Anterior Saphenous Mid 0.25 above fascia cm Rt Anterior Saphenous Distal 0.49 above fascia cm Lt Anterior SaphenousDistal 0.18 above fascia cm Rt CFV Reflux Time 0.00 ms Lt CFV Reflux Time 0.00 ms Rt SFJ Reflux Time 3249.00 ms Lt SFJ Reflux Time 4559.00 ms Rt GSV Thigh Reflux Time 814.00 ms Lt GSV Thigh Reflux Time 0.00 ms Rt PFV Reflux Time 0.00 ms Lt PFV Reflux Time 0.00 ms Rt FV Mid Reflux Time 910.00 ms Lt FV Mid Reflux Time 0.00 ms Rt GSV Knee Reflux Time 0.00 ms Lt GSV Knee Reflux Time 704.00 ms Rt GSV Below Knee Reflux Time 0.00 ms Lt GSV Below Knee Reflux Time 352.00ms Rt Popliteal Reflux Time 0.00 ms Lt Popliteal Reflux Time 0.00 ms Rt Prox SSV Reflux Time 0.00 ms Lt Prox SSV Reflux Time 0.00 ms Rt Mid SSV Reflux Time 0.00 ms Lt Mid SSV Reflux Time 425.00 ms Rt ASV Reflux Time 5453.00 ms Lt ASV Reflux Time 5703.00 ms Right Leg Value Units Left Leg Value Units FINDINGS: Performing Storage Management Architect: Ayah Valdovinos RVT, RDMS. Patient positioning: Reflux testing is performed in standing position. Bilateral: Unable to follow bilateral [place] great saphenous veins from mid-distalthigh. GSV arises again around the knee in both legs. Large anterior saphenous veins notedin bilateral thighs, area of patient concern. Right: The common femoral, femoral, popliteal veins were evaluated withcompression maneuvers. No evidence of deep vein thrombus by duplex, proximal to the calf.Noninvasive venous studies cannot rule out an isolated calf vein obstruction. On the rightvenous reflux noted in sapheno-femoral junction, proximal great saphenous vein andanterior saphenous branch of GSV. Electric Operator vein noted at mid calf measures 0.43cm. 11cm from medialmalleolus. Reflux time 301ms. ASV prox thigh 0.79cm, reflux time 5453ms ASV mid thigh 0.58cm above fascia / branch to knee 0.45cm, reflux 506ms ASV distal thigh 0.49cm above fascia ASV knee 0.51cm above fascia, reflux time 4896ms ASV prox calf 0.54cm above fascia, reflux time 1936ms ASV mid calf 0.33cm above fascia Left: The common femoral, femoral, popliteal veins were evaluated withcompression maneuvers. No evidence of deep vein thrombus by duplex, proximal to the calf.Noninvasive venous studies cannot rule out an isolated calf vein obstruction. Partialsuperficial vein thrombus left anterior saphenous vein branch at proximal calf. On the leftvenous reflux noted in sapheno-femoral junction, anterior saphenous branch of GSV andgreat saphenous vein at the knee. ASV prox thigh 0.86cm, reflux time 5703ms ASV mid thigh 0.25cm above fascia, multiple small branches noted ASV distal thigh 0.18cm above fascia ASV knee 0.29cm above fascia, reflux time 1797ms ASV prox calf 0.33cm above fascia, reflux time 4625ms / partialsuperficial vein thrombus noted in small segment of this vein ASV mid calf 0.27cm above fascia ASV distal calf 0.23cm above fascia - CONCLUSIONS: There is no evidence of acute deep vein thrombosis in the lowerextremities bilaterally. Noninvasive venous studies cannot rule out isolated calf veinobstruction. On the right venous reflux noted in sapheno-femoral junction, proximalgreat saphenous vein and anterior saphenous branch of GSV. On the left venous reflux noted in sapheno-femoral junction, anteriorsaphenous branch of GSV and great saphenous vein at the knee. Superficial vein thrombus in the left lower extremity. HISTORY: Patient reports prior bilateral leg varicose vein treatment around 2014.Current area of concern is medial thigh and knee of bilateral legs. Obesity, HTN, HLD, prediabetes. PREVIOUS STUDIES: No previous studies for comparison. DISCLAIMER: The study images and the final report will be retained in the patientchart by the Vascular Laboratory for the legally required time period. This chartconstitutes the legal record of any testing performed. ATTESTATION: I have reviewed and interpreted the pertinent images and measurements ofthis study. I attest to the conclusions in the final report that is provided above. Electronically Signed By: Hosea Espinoza MD FACS 12/20/2024 8:13:37 PM CDT us Lj Sadler MD IM US PROCEDURES Final Result * SCAN - RADIOLOGY/IMAGING (11/27/2024 2:45 PM CDT) Anatomical Region Laterality Modality Other us Shine Walker MD Final Resu lt * COLONOSCOPY (04/21/2021 8:04 AM BACK SEWER) Anatomical Region Laterality Modality Other Narrative Procedure [...] The scope was passed under direct vision.The [id number] endoscope was introduced through the anus and [...] your results within this timeframe, please call [phone] regarding your results. - Contact Information: During normal business hours - Please call theNurse Coordinator: [phone] After hours, evening, nights, weekends and holidays- Please call the hospital video presentation operator at and ask for the GI fellow hand stonecutter. Electronically Signed By: Orquidea Whalen M.D. Orquidea Whalen M.D. 04/21/2021 8:40:28 AM . Number of Addenda: 0 Note Initiated On: 04/21/2021 8:04 AM Recognized by the [employer] for promoting quality in endoscopy Orquidea Whalen MD ENDOSCOPY PROCEDURES Fin al Result * HM MAMMOGRAPHY (03/09/2021) Historical Provider HEALTH MAINTENANCE Final Result from Last 3 Months or Most Recently Relevant to Health Maintenance Insurance MEDICARE [place] INSURANCE MEDICARE [facility] [id number] HEALTH INSURANCE MEDICARE [facility] INSURANCE MEDICARE [place] INSURANCE MEDICARE [facility] [facility] Advance Directives For more information, please contact: [phone] Documents on File Type Date Recorded Patient All Source Collection Manager Expl anation ADVANCE DIRECTIVE 11/30/2023 4:26 AM POWER OF SEARCH DIRECTOR-MEDICAL * Full Code (Latest Code Status on [...] 6:57 PM 01/16/2022 2:51 PM Care Teams Autocad Electrical Designer Relationship Specialty Start Date End Date Shine Walker MD PCP - General Internal Medicine 02/18/22 Nancy Arias MD [address] [facility] [id number] [place] [address] Consulting Physician Colon and Rectal Surgery 07/26/22 Mika Moore MD [address] [facility] [id number] [place] [address] Consulting Physician General Surgery 08/08/23
--- NOTE | 2025-01-10 14:23 | ECG_ITS ---
Test Date: 2025-01-10 14:27:16 Measurements Intervals [place] Rate: 96 P: 4 KS: 146 QRS: -50 QRSD: 89 T: 126 QT: 342 QTc: 433 Interpretive Statements SINUS RHYTHM LEFT ANTERIOR FASCICULAR BLOCK LEFT VENTRICULAR HYPERTROPHY WITH ST-T CHANGE BORDERLINE R WAVE PROGRESSION, ANTERIOR LEADS BASELINE ARTIFACT- I, III, AVR, AVL, V4-V6 ABNORMAL ECG No previous ECG available for comparison Electronically Signed On 01-11-2025 06:39:16 CDT by Jose Alfredo Valencia D.O.
--- OUTSIDE RECORDS SUMMARY | 2025-01-10 14:23 | XMS_ITS | Patient Health Record ---
Author Organization [facility] Address [address] [place], [place] [address] Care Team Providers Care Biology Professor Name Role Phone CLAUDIO MARIN Unavailable [phone] Reason For Referral No Information Medications Medication SIG (Take, Route, Frequency, Duration) Notes Start Date End Date Status nabumetone 500 MG Oral Tablet [Relafen] ORAL nabumetone 500 MG Oral Tablet [Relafen]Original Medicationnabumetone 500 MG Oral Tablet [Relafen] *Reorder from [facility]iwon for eRx and Interaction Alerts* 12/12/2013 Active estrogens, conjugated (CORRECTION) 0.3 MG Oral Tablet [Premarin] ORAL estrogens, conjugated (CORRECTION) 0.3 MG Oral Tablet [Premarin]Original Medicationestrogens, conjugated (CORRECTION) 0.3 MG Oral Tablet [Premarin] *Reorder from [facility] for eRx and Interaction Alerts* 11/12/2013 Active Plan Of Treatment No Information Insurance Providers Payer Name Payer Address Payer Phone Subscriber Number Group Number Insured Name Patient Relationship to Insured Coverage Start Date Coverage End Date [employer] [address] [place] [phone] [id number] BRAEDEN GAMBOA Self - patient is the insured
--- OUTSIDE RECORDS SUMMARY | 2025-01-10 14:23 | XMS_ITS | Clinical Summary ---
Author Organization [facility] Address [address] [place] [address] Care Team Providers Care Cardiac Rehab Nurse Name Role Phone Shine Walker MD Primary Care Provider [phone] Nancy Arias MD Unavailable [phone] Mika Moore MD Unavailable [phone] Allergies Active Allergy Reactions Criticality Noted Date Comments Diphenhydramine Other (See comments) Low 05/31/2019 GI Intolerance GI Intolerance Porcine Skin, Meshed Other (See comments) Low 09/15 Causes infection Medications fluticasone propionate (FLONASE) 50 mcg/actuation nasal sprayIndications:A llergic Rhinitis Administer 2 sprays into each nostril nightly 1 each 11 4 025 Active fexofenadine (RAFAEL) 60 mg [...] 03/08/2024 Viral upper respiratory tract infection 03/08/20 Overview (03/08/2024): Dx w PNA at [facility] without CXR to confirm [...] (10/08/2021): Added automatically from request for surgery [id number] Vaginal wall prolapse 10/08/2021 Overview (10/08/2021): Added automatically from request for surgery [id number] Cystocele, midline 05/21/2021 LUQ pain 03/25/2021 Overview (03/25/2021): Added automatically from request for surgery [id number] Other chest pain 07/17/2019 History of peptic ulcer 03/14/2019 Overview (03/14/2019): Added automatically from request for surgery [id number] Nausea 03/14/2019 Overview (09/10/2021): Sees Dr Whalen [...] Assessment & Plan (02/01/2022 2:33 PM CDT): lacho Diehl Continue to follow with GI Continue her current regimen Update me with any changes Rupture of biceps tendon 04/17/2015 Mass of upper extremity 02/24/2015 Generalized anxiety disorder 08/30/2014 Assessment & Plan (02/01/2022 2:31 PM CDT): lacho Diehl Continue ativan Continue healthy changes for her mood Update me with any changes Assessment & Plan (09/10/2021 2:35 PM CDT): Takes lorazepam hs fairly regularly now. We will start some lexapro-5. Major depressive disorder 08/30/2014 Assessment & Plan (02/01/2022 2:30 PM CDT): lacho Diehl Continue lexapro 5 mg daily Continue healthy [...] (07/23/2022): Added automatically from request for surgery [id number] Peptic ulcer disease 06/20/2017 022 Abdominal pain 04/19/2017 02/01/2022 BMI 39.0-39.9,adult 04/19/2017 02/02/20 Encounters Date Type Department Care Team Description 01/09/2025 Telephone [facility] Surgery [address] 8th [place] [address] [place] [address] Bria Cuba RN 01/08/2025 8:00 AM CDT Office Visit [facility] Surgery [address] 8th [place] [address] [place] [address] Lj Sadler MD Varicose veins of right lower extremity with pain (Primary Dx) 12/26/2024 Telephone [facility]) - [facility] Minimally Invasive Surgery [address] 12th Floor, [place] [address] Mika Moore MD Scheduling Appointments 12/26/2024 Telephone [facility]) - [facility] Minimally Invasive Surgery [address], [place] [address] Mika Moore MD Scheduling Appointments 12/20/2024 8:00 AM CDT Ancillary Procedure [facility] Vascular Lab at the [place] [id number] [facility] [address] 8th [place] [address] [place] [address] Varicose veins of both lower extremities with pain 12/07/2024 Telephone [facility]) - [facility] Minimally Invasive Surgery [address] 12th [address], [place] [address] Mika Moore MD Medical Question/Miscellaneo us 12/05/2024 Telephone [facility] Surgery [address] Floor 1 [place] [address] Lj Sadler MD 11/27/2024 Orders Only [facility] [address] [place] [address] Shine Walker MD 10/31/2024 Telephone [facility] [address] [place] [address] Lorrie العراقي, CLINICAL SALES CONSULTANT Test Results 10/30/2024 Orders Only [facility] Surgery [address] [facility] 8th [place] [address] [place] [address] Lj Sadler MD Varicose veins of both lower extremities with pain (Primary Dx) 10/30/2024 Telephone [facility] Surgery [address] Floor 1 [place] [address] Jessica Gill from Last 3 Months Immunizations Immunization Administration Dates Next Due Hep A, Adult 06/12/2199 Hep A, Unspecified 06/12/1999 Hep B Vaccine 06/12/2199 Influenza, Unspecified 03/13/2021(Deferred: Denise ent Refused) [email or web address] SARS-CoV-2 Monovalent Vaccination (12+ Yrs) PURPLE 08/14/2020,07/21/2020 Pneumococcal Conjugate PCV 13 01/08/2016 Pneumococcal Conjugate Pcv20 02/25/2023 Pneumococcal Polysaccharide PPV23 04/02/2020 RSV, Bivalent, Protein Subun it Rsvpref, Diluent (Abrysvo) 04/13/2024 Tdap 10/28/2016 ZOSTER LIVE 06/12/1999 ZOSTER Recombinant 03/29/2021,05/08/2019 Surgical History Surgery Date Site/Laterality Comments BLADDER SURGERY Bladder Surgery - (Added by TW Conv) NE UNLISTED PROCEDURE ABDOME N PERITONEUM & OMENTUM Hernia Repair - (Added by TW Conv) NE TOTAL ABDOMINAL HYSTERECT W/WO RMVL TUBE OVARY Hysterectomy - (Added by TW Conv) NE ARTHROPLASTY KNEE TIBIAL PLATEAU Knee Replacement - [...] 07/17/2019 Cystocele, midline 05/21/2021 Diverticulitis 07/23/2022 Added giovannya lly from request for surgery [id number] Motion sickness GERD (gastroesophageal reflux disease) Family [...] on file 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 Gender Identity Not on file Sexual Orientation [...] 02/01/2022, 02/01/2022, Additional history exists Covid-19 Vaccine (2023-2 5 season) 2024 12/17/2021, 04/15/2021, 08/14/2020, Additional history exists Osteoporosis Screening-Bone Density Scan 03/16/2024 03/16/2022, 05/07/2019 Fall Risk Assessment 11/24/2024 11/25/2023, 09/10/2021, 04/02/2020 Influenza Vaccine (#1) 2025 Well Visit 65+ 08/28/2025 08/28/2024, 08/11, [...] history exists Medical Devices Implanted Type Area Dance Therapist Device Identifier Shelf Expiration Date Model / Serial / Lot Patell Bilateral: Knee [employer] Sidra Upsylon 35.4cm Elongation Profile Lightweight Large Pore Low [id number] - [id number] Implanted:Qty: 1 on 01/13/2022 by Tyrell Colunga MD at [facility] N/A: Vagina [employer] Sidra 12/11/2023 [id number] / / [id number] [employer]/C R Bard Mesh, 30x30 Phasix Bard [id number] - [id number] Implanted:Qty: 1 on 11/22/2023 by Mika Moore MD at [facility] N/A: Abdomen [employer]/C R Bard [id number] 05/10/2025 [id number] / / [id number] Procedures Procedure Name Priority Date/Time Associated Diagnosis Comments US VENOUS REFLUX BILATERAL Schedule Routine, Read Routine (OP Routine) 12/20/2024 9:18 AM CDT Varicose veins of both lower extremities with pain SCAN - RADIOLOGY/IMAGING 11/27/2024 2:45 PM CDT COLONOSCOPY 04/21/2021 8:04 AM INSURANCE DEFENSE PARALEGAL MAMMOGRAPHY Routine 03/09/2021 from Last 3 Months or Most Recently Relevant to Health Maintenance Results * US Venous Reflux Bilateral (12/20/2024 9:18 AM CDT) Anatomical Region Laterality Modality Vascular Bilateral Ultrasound 12/20/2024 7:53 AM CDT Narrative 12/20/2024 8:50 PM CDT [facility] - Department of Vascular Surgery, Vascular Laboratory [address] [place] [address] Lower Extremity Venous Reflux Duplex Report Patient Name: ANA LAURA PERSAUD : 1950 (74y 2m) Study Date: 12/20/2024 7:53:38 AM Gender: F Tech: Location: [facility] Provider: LJ SADLER Quality: Adequate Order Provider: [...] Units Left Leg Value Units FINDINGS: Performing Pole Inspector: Ayah Valdovinos RVT, RDMS. Patient positioning: Reflux testing is performed in standing position. Bilateral: Unable to follow bilateral skagway great saphenous veins from mid-distal thigh. GSV [...] vein and anterior saphenous branch of GSV. Senior Engineering Specialist vein noted at mid calf measures 0.43cm. [...] Procedure Note Hosea Espinoza MD - 12/20/2024 [facility] - Department of Vascular Surgery,Vascular Laboratory [address] [place] [address] Lower Extremity Venous Reflux Duplex Report Patient Name: ANA LAURA PERSAUD : 1950 (74y 2m) Study Date: 12/20/2024 7:53:38 AM Gender: F Tech: Location: [facility] Ref Provider: LJ SADLER Quality: Adequate Order [...] Units Left Leg Value Units FINDINGS: Performing Pole Inspector: Ayah Valdovinos RVT, RDMS. Patient positioning: Reflux testing is performed in standing position. Bilateral: Unable to follow bilateral [place] great saphenous veins from mid-distalthigh. GSV arises [...] saphenous vein andanterior saphenous branch of GSV. Senior Engineering Specialist vein noted at mid calf measures 0.43cm. [...] provided above. Electronically Signed By: Hosea Espinoza MD, FACS 12/20/2024 8:13:37 PM CDT us Lj Sadler MD [facility] US PROCEDURES Final Result * SCAN - RADIOLOGY/IMAGING (11/27/2024 2:45 PM CDT) Anatomical Region Laterality Modality Other us Shine Walker MD Final Resu lt * COLONOSCOPY (04/21/2021 8:04 AM INSURANCE DEFENSE PARALEGAL) Anatomical Region Laterality Modality Other Narrative Procedure Note Orquidea Whalen MD - 04/21/2021 8:04 AM CST [facility] Patient Name: Ana Laura Burroughs Procedure Date: 04/21/2021 8:04 AM Date of : 1950 Admit Type: Outpatient Age: 70 Gender: Female Attending MD: Orquidea Whalen M.D. Room: [facility] ENDOSCOPY ROOM 3 Note Status: Finalized Procedure: [...] The scope was passed under direct vision.The [id number] endoscope was introduced through the anus and [...] your results within this timeframe, please call [phone] regarding your results. - Contact Information: During normal business hours - Please call theNurse Coordinator: [phone] After hours, evening, nights, weekends and holidays- Please call the hospital autocad operator at and ask for the GI fellow educational aide. Electronically Signed By: Orquidea Whalen M.D. Orquidea Whalen M.D. 04/21/2021 8:40:28 AM . Number of Addenda: 0 Note Initiated On: 04/21/2021 8:04 AM Recognized by the [employer] for promoting quality in endoscopy Orquidea Whalen MD ENDOSCOPY PROCEDURES Fin al Result * HM MAMMOGRAPHY (03/09/2021) Historical Provider HEALTH MAINTENANCE Final Result from Last 3 Months or Most Recently Relevant to Health Maintenance Insurance MEDICARE [facility] INSURANCE MEDICARE [facility] INS[facility] MEDICARE [facility] [employer]ANCE MEDICARE [facility] [employer]ANCE MEDICARE [facility] INSURANCE Advance Directives For more information, please contact: [phone] Documents on File Type Date Recorded Patient Community Health Navigator Expl anation ADVANCE DIRECTIVE 11/30/2023 4:26 AM POWER OF VERIFICATION CLERK-MEDICAL * Full Code (Latest Code Status on [...] 6:57 PM 01/16/2022 2:51 PM Care Teams Cardiac Rehab Nurse Relationship Specialty Start Date End Date Shine Walker MD PCP - General Internal Medicine 9/8/22 Nancy Arias MD [address] [facility] [phone] [place], [place] [id number] Consulting Physician Colon and Rectal Surgery 07/26/22 Mika Moore MD [address] [facility] [phone] [place] [address] Consulting Physician General Surgery 08/08/23
--- OUTSIDE RECORDS SUMMARY | 2025-01-10 14:23 | XMS_ITS | Clinical Summary ---
Author Organization [facility] Address [address] [place] [address] Care Team Providers Care Fund Development Manager Name Role Phone Hilario Negron MD Primary Care Provider [phone] Chuck Barrow MD Unavailable [phone] Source Comments [facility],non-owned Affiliates and Associated Physician Practices is amultiple site organization consisting of ambulatory clinics and hospital sitesin [place] and [place]. This disclosure is being madepursuant to the Care Everywhere program and may not contain all information available regarding this patient. Last updated 18.[facility] Allergies Active Allergy Reactions Criticality Noted Date [...] cimetidine (TAGAMET) 800 MG tablet daily. Active doxycycline hyclate (Vibramycin) 100 MG capsule 2 Active amLODIPine (Norvasc) 5 MG tablet Take 1 (one) tablet by mouth once daily 5 08/29/19 26 Active atorvastatin (Lipitor) 80 MG tablet Take 1 (one) tablet by mouth at bedtime 5 08/29/19 26 Active amoxicillin (Amoxil) 500 MG capsule 3 01/02/20 25 Discontinu ed(List Clean-Up) nystatin-triamc inolone (Mycolog) 353422-9.1 UNIT/GM-% creamIndication s:Yeast infection Apply to affected area 2 times daily as needed 30 g 2 3 01/02/20 25 Discontinu ed(List Clean-Up) Active Problems Problem Noted Date Diagnosed Date Refused influenza vaccine 05/21/2021 Cystocele, midline 05/21/2021 Menopausal symptoms Encounters Date Type Department Care Team Description 01/07/2025 Orders Only [facility] SKIN CARE THERAPIST [address] [place] [address], [address] [address] Chuck Barrow MD Abnormal mammogram of right breast 01/01/2025 1:20 PM CDT Office Visit [facility] SKIN CARE THERAPIST [address] [place] [address], [address] [address] Chuck Barrow MD Breast lump on right side at 6 o'clock position (Primary Dx); Yeast infection; Mastalgia 01/01/2025 Travel from Last 3 Months Family History Medical History Relation Name Comments [...] on file 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 Gender Identity Not on file Sexual Orientation Not on file Last Filed Vital Signs Vital Sign Reading Time Taken Comments Blood Pressure 120/70 01/01/2025 1:17 PM CDT Pulse - - Temperature - - Respiratory Rate - - Oxygen Saturation - - Inhaled Oxygen Concentration - - Weight 87.1 kg (192 lb) 01/01/2025 1:17 PM CDT Height 159 cm (5' 2.6) 01/01/2025 1:17 PM CDT Body Mass Index 34.45 01/01/2025 1:17 PM CDT Plan of Treatment Health Maintenance Due Date Last Done Comments COLOGUARD (AGES 45-75) - COLON CA SCREENING 1950 CT COLONOGRAPHY - COLON CA SCREENING 1950 FIT - COLON CA SCREENING 1950 FLEX SIG - COLON CA SCREENING 1950 MEDICARE AWV 12 MONTHS 1950 HEPATITIS C SCREENING 10/11/1967 DTAP/TDAP/TD VACCINES (1 - Tdap) 1968 PNEUMOCOCCAL VACCINE 50+ (1 of 1 - PCV) 10/16/1999 ZOSTER VACCINE (1 of 2) 10/16/1999 COVID-19 VACCINE (3 - 2023- season) 2024 08/14/2020, 07/21/2020 DEPRESSION SCREENING 06/13/2024 07/20/2023 Respiratory Syncytial Virus (RSV) Vaccine Pt: or over 60 yrs (1 - 1-dose 75+ series) 2024 INFLUENZA VACCINE (#1) 2025 MAMMOGRAM 04/24/2026 04/24/2024, 04/13, 04/24/2024, Additional history exists COLON MONITORING 04/21/2031 04/21/2021 [...] Most Recently Relevant to Health Maintenance Insurance [place] [employer] Care Teams Fund Development Manager Relationship Specialty Start Date End Date Hilario Negron MD PCP - General Internal Medicine 07/08/16 Chuck Barrow MD [address] [address] Obstetrics and Gynecology 03/10/21
--- OUTSIDE RECORDS SUMMARY | 2025-01-10 14:23 | XMS_ITS | Encounter Summary ---
Author Organization [facility] Address [address] [place] [address] Phone Care Team Providers Care Medical Logistics Specialist Name Role Phone Shine Walker MD Primary Care Provider [phone] Nancy Arias MD Unavailable [phone] Mika Moore MD Unavailable [phone] Encounter Details Date Type Department Care Team (Late st Contact Info) Description 01/09/2025 Telephone [facility] Surgery [address] [facility] 8th [place] [address] [place] [address] Bria Cuba RN Social History Tobacco Use Types Packs/Day Years Used Date Smoking Tobacco: Never Smokeless Tobacco: Never Alcohol Use Standard Drinks/Week Comments No 0 [...] on file 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 CPT 18343,94520,48857 @ [facility] no prior auth, follows all guidelines. Division notified via in basket- [facility] 01/09/2025 CPT 14068-[place] Branch-RT I83.891, I83.811 in office CPT 43378,77477,94495-SY I83.891, I83.811 @ Bria Hickey RN P Nam Garcia Pre-Determination Pool Submitted by: Bria Cuba RN Surgeon: Blayne Insurance Medicare A/B; [place] [employer] INSURANCE-secondary Pre Operative Diagnosis: Right ASV reflux and varicose veins with pain refractory to conservative measures PAIN I83.811 Varicose Veins of RIGHT LE with pain EDEMA/SWELLING I83.891 Varicose veins of RIGHT LE with other complications (edema, swelling) PLANNED TREATMENT: Right Leg 12831- Radiofrequency Ablation of Anterior Branch [facility] office Tentative dateTBD 78925-Rjpp Phlebectomy 10-20 incisions [facility] OR Tentative date TBD 60174-rgjy than 20 [facility] [place] TBD 07022- Less than10 [facility] OR tentative date TBD Additional Information Required: Final signed office notes available in EPIC, Final singed vascular testing available in EPIC, and pictures available in EPIC ----- Message ----- From: Bria Cuba RN Sent: 01/08/2025 3:18 PM CDT To: Cyril Garcia Pre-Determination Pool Subject: VV PreD Submitted by: Bria Cuba RN Surgeon: Blayne Insurance Medicare A/B; [place] [employer] INSURANCE-secondary Pre Operative Diagnosis: Right ASV reflux and varicose veins with pain refractory to conservative measures PAIN I83.811 Varicose Veins of RIGHT LE with pain EDEMA/SWELLING I83.891 Varicose veins of RIGHT LE with other complications (edema, swelling) PLANNED TREATMENT: Right Leg 68258- Radiofrequency Ablation of Anterior Branch [facility] office Tentative dateTBD 27825-Bhnt Phlebectomy 10-20 incisions [facility] OR Tentative date TBD 57464-bvbj than 20 [facility] OR Tentative date TBD 45774- Less than10 [facility] OR tentative date TBD Additional Information Required: Final signed office notes available in EPIC, Final singed vascular testing available in EPIC, and pictures available in EPIC documented in this encounter Plan of Treatment Not on file documented as of this encounter Visit Diagnoses Not on filedocumented in this encounter Care Teams Medical Logistics Specialist Relationship Specialty Start Date End Date Shine Walker MD PCP - General Internal Medicine 02/18/22 Nancy Arias MD [address] [phone] [place] [address] Consulting Physician Colon and Rectal Surgery 07/26/22 Mika Moore MD [address] [phone] [place] [address] Consulting Physician General Surgery 08/08/23 documented as of this encounter
--- OUTSIDE RECORDS SUMMARY | 2025-01-10 14:23 | XMS_ITS | Clinical Summary ---
Author Organization [facility] Address [facility] [place] [address] Care Team Providers Care Drawer In Dobby Loom Name Role Phone Hilario Negron MD Primary Care Provider [phone] Family History Medical History Relation Comments Breast Cancer Other great grandmothe r/ paternal/ age of diagnosis unknown Relation Status Comments Other Social History Tobacco Use Types Packs/Day Years Used Date Smoking Tobacco: Never Assessed Comments Unknown Sex and Gender Information Value Date Recorded Sex Assigned at Not on file Legal Sex Female 11:42 PM CDT Gender Identity Not on file Sexual Orientation Not on file Plan of Treatment Upcoming Encounters Date Type Department Care Team (Late st Contact Info) Description 01/11/2025 12:00 PM CDT Appointment [facility] [place] [address] Yusuf Castellanos MD [facility] [address] [id number] 01/11/2025 12:30 PM CDT Appointment [facility] [place] [address] Yusfu Castellanos MD [facility] [address] [id number] Health Maintenance Due Date Last Done Comments Colorectal Cancer Screening Colonoscopy (10 Years) 1950 Hepatitis C 10/16/1967 Annual Medicare Wellness Visit 2014 COVID-19 Vaccine (3 - 2023-2 5 season) 2024 08/14/2020, 07/21/2020 DTaP, Tdap and Td Vaccines ( 2 - Td or Tdap) 10/28/2026 10/28/2016 Zoster Vaccines Completed 03/29/2021, 05/08/2019, 06/12/1999 Dexa Scan (General) Completed 03/16/2022, 03/16/2022, 05/07/2019 Pneumococcal Vaccine: 50+ Years Completed 02/25/2023, 04/02/2020, 01/08/2016 RSV Immunization or 60+ Years Completed 04/13/2024 Meningococcal B Vaccine Aged Out No l onger eligible based on patient's age to complete this topic Meningococcal Vaccine Aged Out No srini tio eligible based on patient's age to complete this topic RSV Immunizations Under 20 Months Aged Out No longer eligible b ased on patient's age to complete this topic Procedures Procedure Name Priority Date/Time Associated Diagnosis Comments BONE DENSITY/DEXA Routine 03/16/2022 12: 33 PM CDT Menopause from Last 3 Months or Most Recently Relevant to Health Maintenance Results * BONE DENSITY/DEXA (03/16/2022 12:33 PM CDT) Anatomical Region Laterality Modality Bone Mammography 03/16/2022 12:4 7 PM CDT Impressions 03/16/2022 12:48 PM CDT IMPRESSION: WHO Classification: normal. 5.5% interval decrease in bone mineral density of the left femoral neck from 2019 comparison. FRAX: 0.5% chance of hip fracture and 7.1% chance of major osteoporotic fracture over the next 10 years. Referred By: YUSUF CASTELLANOS Interpreted By: Jorge Luis Sahu MD, 03/16/2022 12:47 PM Narrative 03/16/2022 12:48 PM CDT Examination: Bone Density Axial Exam Date/Time: 03/16/2022 12:10 PM Reason For Exam: Menopause Menopausal symptoms. Comparison: 05/07/2019 DEXA scan Findings: DEXA bone densitometry The bone mineral density (BMD) was determined by dual-energy x-ray absorptiometry, the results are as follows: AP Lumbar Spine L1 through L4 BMD Patient (GM/SQCM): 1.158 T-Score (Standard deviations from young adult peak bone density): 1.0 Left femoral neck: BMD Patient (GM/SQCM): 0.835 T-Score (Standard deviations from young adult peak bone density): -0.1 Total Left femur: BMD Patient (GM/SQCM): 0.947 T-Score (Standard deviations from young adult peak bone density): 0.0 Recommendations: All patients should ensure an adequate intake of dietary calcium and vitamin D. The NOF recommend adults under the age of 50 need 1000 mg of calcium and 400-800 IU of vitamin D daily. Effective therapy for the prevention and treatment of osteoporosis include biphosphonates. Follow-up: People with diagnosed cases of osteoporosis or at high risk for fracture should have regular bone mineral density test. For patients eligible for Medicare, routine testing is allowed once every 2 years. Testing frequency can be increased to one year for patients who have rapidly progressing disease, those who are receiving or discontinuing medical therapy to restore bone mass, or have additional risk factors. Procedure Note Jorge Luis Sahu MD - 03/16/2022 Examination: Bone Density Axial Exam Date/Time: 03/16/2022 12:10 PM Reason For Exam: Menopause Menopausal symptoms. Comparison: 05/07/2019 DEXA scan Findings: DEXA bone densitometry The bone mineral density (BMD) was determined bydual-energy x-ray absorptiometry, the results are as follows: AP Lumbar Spine L1 through L4 BMD Patient (GM/SQCM): 1.158 T-Score (Standard deviations from young adult peak bonedensity): 1.0 Left femoral neck: BMD Patient (GM/SQCM): 0.835 T-Score (Standard deviations from young adult peak bonedensity): -0.1 Total Left femur: BMD Patient (GM/SQCM): 0.947 T-Score (Standard deviations from young adult peak bonedensity): 0.0 Recommendations: All patients should ensure an adequate intake of dietary calcium andvitamin D. The NOF recommend adults under the age of 50 need 1000 mg ofcalcium and 400-800 IU of vitamin D daily. Effective therapy for theprevention and treatment of osteoporosis include biphosphonates. Follow-up: People with diagnosed cases of osteoporosis or at high risk for fractureshould have regular bone mineral density test. For patients eligible forMedicare, routine testing is allowed once every 2 years. Testing frequencycan be increased to one year for patients who have rapidly progressingdisease, those who are receiving or discontinuing medical therapy torestore bone mass, or have additional risk factors. IMPRESSION: WHO Classification: normal. 5.5% interval decrease in bone mineraldensity of the left femoral neck from 2019 comparison. FRAX: 0.5% chance of hip fracture and 7.1% chance of major osteoporoticfracture over the next 10 years. Referred By: YUSUF CASTELLANOS Interpreted By: Jorge Luis Sahu MD, 03/16/2022 12:47 PM us Yusuf Castellanos MD DEXA Final Resul t from Last 3 Months or Most Recently Relevant to Health Maintenance Insurance [employer] Care Teams Drawer In Dobby Loom Relationship Specialty Start Date End Date Hilario Negron MD PCP - General 05/20/16
[2025-01-10 14:46] LABS: Hematocrit 39.9 % (37.0-47.0); Hemoglobin 13.0 g/dL (12.0-15.0); Immature Granulocyte Percent A 0.5 % (0-0.5); Lymphocytes Absolute Auto 1.75 K/mm3 (0.9-3.2); Mean Corpuscular HGB Conc 32.6 g/dl (32-36); Mean Corpuscular Hemoglobin 28.3 pg (26-34); Mean Corpuscular Volume 86.7 fl (80-100); Nucleated Red Blood Cells Absolute Auto 0.000 K/mm3 (0.0-0.012); Nucleated Red Blood Cells Perc 0.0 % (0.0-0.2); Platelet Count Result 288 k/mm3 (150-375); Red Blood Count 4.60 M/mm3 (4.2-5.4); White Blood Count 7.9 K/mm3 (4.5-10.0)
[2025-01-10 15:04] LABS: Alanine Aminotransferase 18 U/L (6-35); Albumin Level 4.5 g/dL (3.5-5.1); Alkaline Phosphatase 88 U/L (38-126); Anion Gap 14 mmol/L (4-12); Aspartate Amino Transferase 34 U/L (14-36); Bilirubin,Total 0.7 mg/dL (0.2-1.3); Blood Urea Nitrogen 19 mg/dL (7-17); Calcium 10.1 mg/dL (8.4-10.2); Carbon Dioxide 20 mmol/L (22-30); Chloride 102 mmol/L (98-107); Estimated CRCL calculation 36 ml/min; Estimated Glomerular Filt Rate 42; Glucose 117 mg/dL (65-110); Lipase 55 U/L (23-300); Potassium 4.6 mmol/L (3.4-5.0); Sodium 136 mmol/L (137-145); Total Protein 8.2 g/dL (6.3-8.2)
[2025-01-10 15:05] LABS: INR 1.0; Prothrombin Time 13.4 Seconds (11.1-14.7)
[2025-01-10 15:06] LABS: Partial Thromboplastin Time 28.5 Seconds (22.3-36.8)
[2025-01-10 15:14] LABS: Troponin I < 0.012 ng/mL (0.000-0.034)
[2025-01-10 15:36] VITALS: PULSE 95
[2025-01-10 15:47] VITALS: BP 139/85; PULSE 88; RESP 15; O2SAT 98
[2025-01-10 15:51] VITALS: BP 139/85; PULSE 88; RESP 19; O2SAT 100; O2SAT 99
[2025-01-10] MEDS: LACTATED RINGERS 1,000 ML 999 ML IV CONT (16:50)
--- NOTE | 2025-01-10 21:31 | ED_ITS ---
HPI - Chest Pain General Chief Complaint: Chest Pain Stated Complaint: CP Time Seen by Provider: 01/10/25 16:06 History of Present Illness HPI narrative: Patient presents here with an episode of chest pain at home, she has been dealing with a lot of stress recently, has had panic attacks in the past, she is now asymptomatic after arriving here. Initially was a sensation of chest tightness, shortness of breath, and tingling to her bilateral hands. Will be following up with speech/language therapist in Related Data Home Medications ?Medication ?Instructions ?Recorded ?Confirmed ?Last Taken ?Type escitalopram oxalate 20 mg tablet 20 mg DIRECTED 04/21/19 10/24/24 06/29/22 History lorazepam 1 mg tablet 1 mg DIRECTED 04/21/19 10/24/24 06/29/22 History fluconazole 150 mg tablet 150 mg DIRECTED 05/28/22 10/24/24 Unknown History pantoprazole 40 mg tablet,delayed 40 mg PO DIRECTED 05/28/22 10/24/24 Unknown History release ketoconazole 2 % shampoo topical 10/24/24 10/24/24 Unknown History Allergies Allergy/AdvReac Type Severity Reaction Status Date / Time diphenhydramine Allergy Unknown TONGUE Verified 01/10/25 15:53 EDEMA Review of Systems 2 Review of Systems: All systems reviewed & are unremarkable except as noted in HPI and below PMFSH Past Medical History Medical History Right shoulder pain Surgical History Surgical History History of bilateral knee replacement Family History Family History Other Family history of malignant neoplasm Social History Social History Smoking status: Never smoker Alcohol intake: never Substance use: never Living arrangements: with family Occupation/Education: occupation Gender identity (if verbalized by the patient): Female Exam 2 Narrative: EXAMINATION OF ORGAN SYSTEMS/BODY AREAS: Constitutional: Vital signs per nursing GENERAL:[No acute distress, non-toxic appearing.] HEAD: Normal with no signs of head trauma. EYES: EOMI, conjunctiva normal ENT: Hearing grossly intact LUNGS: Nonlabored breathing. HEART: [Regular rate and rhythm], normal DP and radial pulses bilaterally ABD: [Soft], [nontender to palpation] EXT: Normal range of motion SKIN: [No rashes or lesions.] NEURO: [Alert and oriented x 3. No gross focal sensory or strength deficits.] PSYCH: Normal affect Course Vital Signs Vital signs: Vital Signs Temperature 98.2 F 01/10/25 14:19 Pulse Rate 100 01/10/25 14:19 Respiratory Rate 16 01/10/25 14:19 Blood Pressure 124/62 01/10/25 14:19 Pulse Oximetry 99 01/10/25 14:19 Temperature 98.2 F 01/10/25 14:19 Pulse Rate 88 01/10/25 15:51 Respiratory Rate 19 01/10/25 15:51 Blood Pressure 139/85 01/10/25 15:51 Pulse Oximetry 100 01/10/25 15:51 Oxygen Delivery Autopap 01/10/25 15:51 MDM - Chest Pain MDM Narrative Medical decision making narrative: Patient with history of anxiety/panic attacks presenting here with symptoms consistent with panic attack. On exam patient is initially slightly nervous however then symptoms have resolved. I will obtain cardiac workup including EKG and chest x-ray to rule out arrhythmia/ischemia, pneumothorax, or other cause of chest discomfort/shortness of breath. Chest x-ray on my independent interpretation does not show any acute abnormality, no pneumothorax or consolidation. EKG - 12-Lead: Performed at 1427. Interpreted by me. [Sinus rhythm]. Rate 96. Left axis. GA-interval [normal]. QRS duration [normal]. QTc [normal]. [No ST segment elevation or depression]. See inverted T-waves in 1, aVL, no prior EKG for comparison. Impression: No EKG evidence of acute ischemia or dysrhythmia. Labs including troponin is negative. On reevaluation patient is feeling better, resting comfortably, vital signs now stable. I do feel patient is stable for discharge home at this time she has very close follow-up to her speech/language therapist, and return here if symptoms return or worsen. Agreeable to outpatient management. Lab Data 01/10/25 14:40 01/10/25 14:40 Labs: Lab Results 01/10/25 Range/Units 14:40 WBC 7.9 (4.5-10.0) K/mm3 RBC 4.60 (4.2-5.4) M/mm3 Hgb 13.0 (12.0-15.0) g/dL Hct 39.9 (37.0-47.0) % MCV 86.7 (80-100) fl MCH 28.3 (26-34) pg MCHC 32.6 (32-36) g/dl RDW 13.1 (11.5-14.5) % Plt Count 288 (150-375) k/mm3 MPV 8.9 (7.4-10.4) fl Immature Gran % (Auto) 0.5 (0-0.5) % Neut % (Auto) 65.4 (45.5-73.1) % Lymph % (Auto) 22.0 (18.3-44.2) % [place] % (Auto) 7.8 (2.6-8.5) % Eos % (Auto) 3.3 (0-4.4) % Baso % (Auto) 1.0 (0.2-1.2) % Lymph # (Auto) 1.75 (0.9-3.2) K/mm3 [place] # (Auto) 0.6 (0.1-0.6) K/mm3 Eos # (Auto) 0.3 (0-0.3) K/mm3 Baso # (Auto) 0.1 (0.0-0.1) K/mm3 Abs Immat Gran (auto) 0.04 H (0.00-0.031) K/mm3 Absolute Neuts (auto) 5.2 (1.3-6.7) K/mm3 Absolute Nucleated RBC 0.000 (0.0-0.012) K/mm3 Nucleated RBC % 0.0 (0.0-0.2) % PT 13.4 (11.1-14.7) Seconds INR 1.0 APTT 28.5 (22.3-36.8) Seconds Sodium 136 L (137-145) mmol/L Potassium 4.6 (3.4-5.0) mmol/L Chloride 102 (98-107) mmol/L Carbon Dioxide 20 L (22-30) mmol/L Anion Gap 14 H (4-12) mmol/L BUN 19 H D (7-17) mg/dL Creatinine 1.25 H (0.7-1.0) mg/dL Estim Creat Clear Calc 36 ml/min Estimated GFR 42 L (59 - ) Glucose 117 H (65-110) mg/dL Calcium 10.1 (8.4-10.2) mg/dL Total Bilirubin 0.7 (0.2-1.3) mg/dL AST 34 (14-36) U/L ALT 18 (6-35) U/L Alkaline Phosphatase 88 (38-126) U/L Troponin I < 0.012 (0.000-0.034) ng/mL Total Protein 8.2 (6.3-8.2) g/dL Albumin 4.5 (3.5-5.1) g/dL Lipase 55 (23-300) U/L Discharge Plan Discharge Clinical Impression: Atypical chest pain, Elevated serum creatinine Patient Disposition: Home Condition: Stable Instructions: Chest Pain (ED), Impaired Kidney Function (ED) Additional Instructions: Please follow up with your PCP to recheck your kidney labs in the next 1-2 weeks; follow up with your speech/language therapist as scheduled. If your symptoms return, come back to the ER. Patient Language: [place]i Prescriptions: No Action lorazepam 1 mg tablet 1 mg DIRECTED escitalopram oxalate 20 mg tablet 20 mg DIRECTED doxycycline monohydrate 100 mg tablet 100 mg PO BID Qty: 14 0RF fluconazole 150 mg tablet 150 mg DIRECTED pantoprazole 40 mg tablet,delayed release (DR/EC) 40 mg PO DIRECTED ketoconazole 2 % shampoo topical fluticasone propionate 50 mcg/actuation spray,suspension 2 spray INTRANASAL BID Qty: 16 3RF Rx Instructions: Aim back/up/out ondansetron 4 mg tablet,disintegrating 4 mg PO Q6-8H PRN (Reason: nausea and vomiting) Qty: 14 0RF acetaminophen 500 mg capsule 500 mg PO Q6H PRN (Reason: pain) Qty: 20 0RF Follow-up/Referrals: PHYSICIAN NOT ON STAFF,NONSTAFF [Primary Care Provider] -
== END 2025-01-10 17:55 | disposition home or self-care (01) ==
LOC: ANHED 16:36
PROVIDERS: Emergency Provider Emergency Medicine
DX: R07.89 Other chest pain (principal); R74.8 Abnormal levels of other serum enzymes; Z96.653 Presence of artificial knee joint, bilateral
CPT/HCPCS: 36415; 71046; 80053; 83690; 84484; 85025; 85610; 85730; 93005; 96360; 99283; J7120